=== PATIENT | female | born 1945 | race Caucasian/White ===

== ENCOUNTER 2019-09-03 10:30 | Outpatient (CLI) | payer MEDICARE, SELFPAY ==
--- NOTE | ~2019-09-03 | MM_ITS ---
EXAMINATION: MM screening [facility] BI w [facility] HISTORY: Screening mammogram TECHNIQUE: Craniocaudal and mediolateral oblique 3-D tomosynthesis images were obtained and synthetic 2-D images were generated. CAD analysis was submitted and interpreted. COMPARISON: Comparison to multiple prior studies sequentially, with oldest reviewed study dated 07/2012. BREAST PARENCHYMAL COMPOSITION: There are scattered areas of fibroglandular density. FINDINGS: There is no evidence of suspicious mass, calcification, or architectural distortion to sugg est malignancy in either breast. There has been no suspicious interval change. IMPRESSION: 1. No mammographic evidence of malignancy. 2. Recommend routine screening mammography in one year. BI-RADS Category 1: Negative Reviewed, dictated and finalized at location A.
== END 2019-09-03 10:31 | disposition home or self-care (01) ==
PROVIDERS: PCP Family Medicine Adolescent Medicine; Visit Provider Family Medicine Adolescent Medicine
DX: Z12.31 Encounter for screening mammogram for malignant neoplasm of breast (principal)
CPT/HCPCS: 77063; 77067

== ENCOUNTER 2020-09-09 10:00 | Outpatient (CLI) | payer MEDICARE, SELFPAY ==
--- NOTE | ~2020-09-09 | MM_ITS ---
EXAMINATION: MM screening [facility] w [facility] HISTORY: Screening mammogram TECHNIQUE: Craniocaudal and mediolateral oblique 3-D tomosynthesis images were obtained and synthetic 2-D images were generated. CAD analysis was submitted and interpreted. COMPARISON: 09/03/2019, 11/08/2017, 11/02/2016 bilateral digital screening mammogram examinations BREAST PARENCHYMAL COMPOSITION: There are scattered areas of fibroglandular density. FINDINGS: Stable small circumscribed likely benign intramammary lymph node is noted posteriorly in th e upper outer quadrant of each breast. Occasional benign calcifications. There is no evidence of susp icious mass, calcification, or architectural distortion to suggest malignancy in either breast. There has been no suspicious interval change. IMPRESSION: 1. No mammographic evidence of malignancy. 2. Recommend routine screening mammography in one year. BI-RADS Category 2: Benign finding(s). Reviewed, dictated and finalized at location A.
== END 2020-09-09 10:01 | disposition home or self-care (01) ==
LOC: ANHIMG 10:04
PROVIDERS: PCP Family Medicine Adolescent Medicine; Visit Provider Family Medicine Adolescent Medicine
DX: Z12.31 Encounter for screening mammogram for malignant neoplasm of breast (principal)
CPT/HCPCS: 77063; 77067

== ENCOUNTER 2020-09-23 01:04 | Day surgery (SDC) | payer MEDICARE, SELFPAY ==
[2020-09-09 15:03] VITALS: BMI 37.5
[2020-09-23 08:20] VITALS: BP 151/60; PULSE 76; RESP 20; TEMP 36.5; O2SAT 97
[2020-09-23] MEDS: LACTATED RINGERS 1,000 ML 150 ML IV CONT (08:31)
--- NOTE | 2020-09-23 08:37 | WPDANESEPPF ---
Anes - Initial Pre Proc Eval Procedure: Operation Date: 09/23/20 09:30 Proposed Procedures p Screening Colonoscopy - Jose D Raman MD Date/Time: 09/23/20 08:37 Surgeon: Jose D Raman MD Pre Op Diagnosis: Neoplasm screening Patient Data Age: 75 Gender: F Height: 1.6 m Weight: 94.8 kg Last Vital Signs Temp 36.5 C 09/23/20 08:20 Pulse 76 09/23/20 08:20 Resp 20 09/23/20 08:20 BP 151/60 H 09/23/20 08:20 Pulse Ox 97 09/23/20 08:20 Allergies Allergy/AdvReac Type Severity Reaction Status Date / Time No Known Allergies Verified 09/23/20 08:19 Home Medications Medication Instructions Recorded Confirmed Type atorvastatin 40 mg PO DAILY 09/09/20 09/09/20 History celecoxib 200 mg PO DAILY 09/09/20 09/09/20 History hydrochlorothiazide 25 mg PO DAILY 09/09/20 09/09/20 History omeprazole 20 mg PO DAILY 09/09/20 09/09/20 History quinapril 40 mg PO DAILY 09/09/20 09/09/20 History Patient hx anesthesia problems: none Family hx anesthesia problems: none [facility] Past Medical History Medical History GERD (gastroesophageal reflux disease) Hyperlipidemia Hypertension ANAIS (obstructive sleep apnea) Social History Social History Smoking status: Former smoker Tobacco type: cigarettes Substance use type: does not use Living arrangements: alone Gender identity (if verbalized by the patient): Female Anes - Eval Final PreProcedure Day of Procedure 09/23/20 08:37 Patient weight: obese Heart: regular rate and rhythm Lungs: clear to auscultation Airway: Mallampati scale class II Neurological: alert and oriented Last oral intake: >/= 8 hours ASA classification: III Emergent: no Anesthetic plan: proceed Anesthesia type and monitoring: general GIVS and standard monitoring Informed Consent: The patient's anesthetic plan and its attendant risks and benefits were discussed with the patient/family/POA. Questions were solicited and answers provided to the satisfaction of the patient/family/POA.
--- NOTE | 2020-09-23 08:58 | PM.HPGS ---
History of Present Illness History of Present Illness Consent: Risks, benefits, and alternatives have been discussed and questions answered. Patient agrees to proceed with procedure. Chief complaint: Neoplasm screening Narrative: Marleny Wolff is a 75 year old female Referred for colon cancer screening. It has been 10 years since her last colonoscopy Review of Systems Review of Systems: All systems reviewed & are unremarkable except as noted in HPI and below PMFSH Past Medical History Medical History GERD (gastroesophageal reflux disease) Hyperlipidemia Hypertension ANAIS (obstructive sleep apnea) Social History Social History Smoking status: Former smoker Tobacco type: cigarettes Substance use type: does not use Living arrangements: alone Gender identity (if verbalized by the patient): Female Meds Home Medications and Allergies Home Medications Medication Instructions Recorded Confirmed Type atorvastatin 40 mg PO DAILY 09/09/20 09/09/20 History celecoxib 200 mg PO DAILY 09/09/20 09/09/20 History hydrochlorothiazide 25 mg PO DAILY 09/09/20 09/09/20 History omeprazole 20 mg PO DAILY 09/09/20 09/09/20 History quinapril 40 mg PO DAILY 09/09/20 09/09/20 History Allergies Allergy/AdvReac Type Severity Reaction Status Date / Time No Known Allergies Verified 09/23/20 08:19 Vital Signs Vital Signs - 24 hr 09/23/20 08:20 Temperature 36.5 C Pulse Rate 76 Respiratory Rate 20 Blood Pressure 151/60 H Pulse Oximetry 97 Exam Resp: Auscultation: clear to auscultation bilaterally Cardio: Rate: regular rate Rhythm: regular rhythm GI: GI Palp: Yes Soft to palpation and No Tenderness to palpation present (GI) Assessment and Plan Assessment and plan (1) Colon cancer screening: Code(s): Z12.11 - Encounter for screening for malignant neoplasm of colon Status: Acute Assessment and Plan: Colonoscopy with possible biopsy or polypectomy or cautery or injection of substances.
[2020-09-23 10:00] VITALS: BP 97/49; PULSE 61; RESP 27; O2SAT 96
[2020-09-23 10:10] VITALS: BP 105/53; PULSE 59; RESP 16; O2SAT 99
[2020-09-23 10:20] VITALS: BP 97/54; PULSE 60; RESP 19; O2SAT 95
== END 2020-09-23 10:32 | disposition home or self-care (01) ==
PROVIDERS: PCP Family Medicine Adolescent Medicine; Visit Provider Internal Medicine Gastroenterology
PROC: 0DJD8ZZ Inspection of Lower Intestinal Tract, Via Natural or Artificial Opening Endoscopic (ICD-10-PCS; CPT 45378; principal; 2020-09-23 09:30)
DX: Z12.11 Encounter for screening for malignant neoplasm of colon (principal); I10 Essential (primary) hypertension; E78.5 Hyperlipidemia, unspecified; K21.9 Gastro-esophageal reflux disease without esophagitis; G47.33 Obstructive sleep apnea (adult) (pediatric); Z87.891 Personal history of nicotine dependence
CPT/HCPCS: G0121; J2001; J2704; J7120

== ENCOUNTER 2021-10-06 10:33 | Outpatient (CLI) | payer MEDICARE, SELFPAY ==
--- NOTE | ~2021-10-06 | MM_ITS ---
EXAMINATION: MM screening [facility] BI w [facility] HISTORY: Screening TECHNIQUE: Craniocaudal and mediolateral oblique 3-D tomosynthesis images were obtained and synthetic 2-D images were generated. CAD analysis was submitted and interpreted. COMPARISON: Comparison to multiple prior studies sequentially, with oldest reviewed study dated 10/19. BREAST PARENCHYMAL COMPOSITION: There are scattered areas of fibroglandular density. FINDINGS: There is no evidence of suspicious mass, calcification, or architectural distortion to sugg est malignancy in either breast. There has been no suspicious interval change. IMPRESSION: 1. No mammographic evidence of malignancy. 2. Recommend routine screening mammography in one year. BI-RADS Category 1: Negative Reviewed, dictated and finalized at location A.
== END 2021-10-06 10:34 | disposition home or self-care (01) ==
PROVIDERS: PCP Family Medicine Adolescent Medicine; Visit Provider Family Medicine Adolescent Medicine
DX: Z12.31 Encounter for screening mammogram for malignant neoplasm of breast (principal)
CPT/HCPCS: 77063; 77067

== ENCOUNTER 2021-12-29 12:24 | Emergency (ER) | payer MEDICARE, SELFPAY ==
[2021-12-29] VITALS (8 sets, daily range): BP systolic 136–162; BP diastolic 74–88; PULSE 62–88; RESP 16–18; TEMP 36.8; O2SAT 96–99
--- NOTE | ~2021-12-29 | CT_ITS ---
EXAMINATION: CT abdomen pelvis w con INDICATION: Right flank pain TECHNIQUE: Computed tomographic images of the abdomen and pelvis were obtained after the administrati on of 100 cc of Omnipaque 350 intravenous contrast. The dose-length product (DLP) was 1078.18 mGy-cm. Automated exposure control and iterative reconstruction technique were employed. COMPARISON: None available FINDINGS: Minimal dependent atelectasis is present in the lung bases. The heart size is normal. There is a moderate-sized sliding hiatal hernia. Calcified coronary artery atherosclerosis is noted. The l iver, spleen, pancreas, gallbladder, and adrenal glands are normal. Hypoattenuating lesions in the ki dneys, measuring up to 2 mm on the right, are too small to characterize but likely represent cysts. T here is calcified atherosclerosis of the aorta and many of the other arteries. There is a moderate-si zed umbilical hernia containing fat. There is a greater than normal number of fluid-filled, nondisten ded small bowel loops. No pathologically enlarged abdominal or pelvic lymph nodes are identified. The re is no free intraperitoneal gas or evidence of bowel obstruction. The cecum is in the right, latera l mid There is severe lumbar spondylosis. abdomen. The mildly dilated appendix measures up to 7 mm. No definite periappendiceal fat stranding is identified. IMPRESSION: 1. Mildly dilated appendix without definite periappendiceal fat stranding. 2. Greater than normal number of fluid-filled, nondistended small bowel loops, possibly enteritis. Reviewed, dictated and finalized at location A.
[2021-12-29 12:58] LABS: Basophils Percent Auto 0.2 % (0.2-1.2); Eosinophils Absolute Auto 0.1 K/mm3 (0-0.3); Hematocrit 38.5 % (37.0-47.0); Hemoglobin 12.7 g/dL (12.0-15.0); Immature Granulocyte Absolute 0.04 K/mm3 (0.00-0.031); Immature Granulocyte Percent A 0.4 % (0-0.5); Lymphocytes Percent Auto 12.3 % (18.3-44.2); Mean Corpuscular Hemoglobin 29.2 pg (26-34); Mean Corpuscular Volume 88.5 fl (80-100); Mean Platelet Volume 12.2 fl (7.4-10.4); Monocytes Absolute Auto 0.4 K/mm3 (0.1-0.6); Monocytes Percent Auto 4.2 % (2.6-8.5); Neutrophils Percent Auto 81.9 % (45.5-73.1); Platelet Count Result 202 k/mm3 (150-375); Red Blood Count 4.35 M/mm3 (4.2-5.4); White Blood Count 9.7 K/mm3 (4.5-10.0)
[2021-12-29 13:15] LABS: Alanine Aminotransferase 18 U/L (6-35); Albumin Level 4.7 g/dL (3.5-5.1); Alkaline Phosphatase 75 U/L (38-126); Anion Gap 12 mmol/L (8-16); Aspartate Amino Transferase 31 U/L (14-36); Bilirubin,Total 0.9 mg/dL (0.2-1.3); Blood Urea Nitrogen 25 mg/dL (7-17); Calcium 8.8 mg/dL (8.4-10.2); Carbon Dioxide 24 mmol/L (22-30); Chloride 100 mmol/L (98-107); Estimated CRCL calculation 39 ml/min; Estimated Glomerular Filt Rate 44; Glucose 169 mg/dL (65-110); Lipase 80 U/L (23-300); Potassium 4.4 mmol/L (3.4-5.0); Sodium 136 mmol/L (137-145)
[2021-12-29 15:00] LABS: Add Urine Microscopic? NO; Appearance Urine Clear (Clear); Bilirubin Urine Negative (Negative); Blood Urine Negative (Negative); Color Urine Yellow (Yellow); Glucose Urine UA Negative (Negative); Ketones Urine Negative (Negative); Leukocyte Esterase Ur Negative LEU/UL (Negative); Nitrate Urine Negative (Negative); Protein Urine Negative (Negative); Specific Grav Ur 1.015 (1.001-1.035); Urobilinogen Urine Negative mg/dL (<2.0)
--- NOTE | 2021-12-29 17:06 | ED.ABDPAIN ---
HPI - Abdominal Pain General Chief Complaint: Abdominal Pain Stated Complaint: abd pain Time Seen by Provider: 12/29/21 16:54 Source: RN notes reviewed History of Present Illness HPI narrative: Patient presents emergency room from home for abdominal pain. Patient states abdominal pain began earlier this morning. The pain is across the mid abdomen described as cramping and bloating in nature. She states that the pain does not radiate she denies any fever chills nausea vomiting or diarrhea. States she did have 2 bowel movements this morning states she has not taken anything for the pain. States she does have a history of an umbilical hernia that has been firm Related Data Allergies Allergy/AdvReac Type Severity Reaction Status Date / Time No Known Allergies Verified 05/26/21 14:54 Review of Systems Review of Systems: Gen.: Denies fevers or chills ENT: Denies congestion Respiratory: Denies shortness of breath or cough CV: Denies chest pain or palpitations GI: See HPI Musculoskeletal: Denies back pain or muscle pain Neuro: Denies numbness, tingling, weakness or focal weakness Skin: Denies rash Except as documented, all other systems reviewed and negative [facility] Past Medical History Medical History GERD (gastroesophageal reflux disease) Hyperlipidemia Hypertension Normal colonoscopy 09/22 ANAIS (obstructive sleep apnea) Surgical History Surgical History (Updated 05/26/21 @ 15:35 by Horacio Neff MD) History of ear surgery x5 History of hysterectomy History of knee replacement procedure of left knee History of tubal ligation Status post removal of thyroid nodule R-side Family History Family History (Updated 05/26/21 @ 15:05 by Candy Julien MA) Father Acute myocardial infarction Heart disease Hypertension Sibling Depression Diabetes mellitus Heart disease Social History Social History Smoking status: Former smoker Tobacco type: cigarettes Smoking end date: 04/06/79 Alcohol intake: current Alcohol use details: Very Little Substance use: never Substance use type: does not use Gender identity (if verbalized by the patient): Female Sexual Orientation (if Verbalized by the Patient): Straight or Heterosexual Spiritual care concerns: No Agree to blood products: Yes Exam Narrative: APPEARANCE: No acute distress, nontoxic, resting in bed HEENT: Normocephalic, atraumatic, OMM RESPIRATORY: No respiratory distress, clear to auscultation bilaterally with no rhonchi wheezing or rales CARDIOVASCULAR: RRR s murmur ABDOMINAL: Soft nondistended tender palpation around periumbilical region with a firm umbilical hernia that cannot be reduced, no tenderness in right lower quadrant, left lower quadrant and right upper quadrant left lower quadrant no rebound or guarding MUSCULOSKELETAl: Moves all extremities. No clubbing, cyanosis or edema. NEURO: Awake and alert. Following commands, speech normal, no focal deficits SKIN:: Warm, dry. Normal Color PSYCHIATRIC: Normal affect/mood Course Course Emergency Course: Patient given morphine in ED umbilical hernia then able to be reduced Following CT scan repeat abdominal exam is soft and nontender no tenderness in the right lower quadrant Discussed Dr. Roque presentation work-up agrees with plan for discharge follow-up as an outpatient Patient states that they are feeling much better at this time. States abdominal pain has resolved. Repeat abdominal exam shows the patient's abdomen to be soft and nontender. Discussed with patient results of workup and diagnosis. Discussed need for follow-up with primary care physician, reasons to return to the emergency department in proper use of medication. Patient understands and agrees to current treatment plan Vital Signs Vital signs: Vital Signs Temperature 98.3 F 12/29/21 1
[2021-12-29] MEDS: MORPHINE SULFATE (*CRX) 2 MG/ML INJ IV PUSH (17:15)
[2021-12-29 18:22] LABS: INR 1.1; Prothrombin Time 14.1 Seconds (11.1-14.7)
[2021-12-29 18:23] LABS: Partial Thromboplastin Time 29.6 SECONDS (22.3-36.8)
== END 2021-12-29 19:25 | disposition home or self-care (01) ==
PROVIDERS: Emergency Provider Emergency Medicine; PCP Family Medicine Adolescent Medicine
DX: K42.9 Umbilical hernia without obstruction or gangrene (principal); E78.5 Hyperlipidemia, unspecified; I10 Essential (primary) hypertension; K21.9 Gastro-esophageal reflux disease without esophagitis; G47.33 Obstructive sleep apnea (adult) (pediatric); Z96.652 Presence of left artificial knee joint; Z90.710 Acquired absence of both cervix and uterus; Z87.891 Personal history of nicotine dependence
CPT/HCPCS: 36415; 74177; 80053; 81003; 83690; 85025; 85610; 85730; 96374; 99284; J2270; Q9967

== ENCOUNTER → 2022-05-09 08:52 | Outpatient (CLI) | payer MEDICARE, SELFPAY ==
--- NOTE | ~2022-05-09 | XR_ITS ---
EXAM: XR shoulder LT min 2V DATE: 05/09/2022 09:07 HISTORY: chronic Pain in left shoulder, LROM . COMPARISON: None available. FINDINGS: Normal mineralization. No fracture or dislocation. No lytic or blastic lesion. Moderate AC joint hypertrophy. Severe glenoid sclerosis, with humeral head flattening and moderate osteophytosis . No erosion or periosteal change. Soft tissues within normal limits. 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 Reviewed, dictated and finalized at location K. [facility] IMPRESSION: Polyarticular left shoulder arthritis, severe in the glenohumeral j oint.
== END ==
PROVIDERS: PCP Family Medicine Adolescent Medicine; Visit Provider Family Medicine Adolescent Medicine
DX: M19.012 Primary osteoarthritis, left shoulder (principal)
CPT/HCPCS: 73030

== ENCOUNTER 2022-12-21 10:27 | Outpatient (CLI) | payer MEDICARE, SELFPAY ==
--- NOTE | ~2022-12-21 | MM_ITS ---
EXAMINATION: MM screening [facility] BI w [facility] HISTORY: Screening TECHNIQUE: Craniocaudal and mediolateral oblique 3-D tomosynthesis images were obtained and synthetic 2-D images were generated. CAD analysis was submitted and interpreted. COMPARISON: Comparison to multiple prior studies sequentially, with oldest reviewed study dated 10/25. BREAST PARENCHYMAL COMPOSITION: There are scattered areas of fibroglandular density. FINDINGS: There is no evidence of suspicious mass, calcification, or architectural distortion to sugg est malignancy in either breast. There has been no suspicious interval change. IMPRESSION: 1. No mammographic evidence of malignancy. 2. Recommend routine screening mammography in one year. BI-RADS Category 1: Negative Reviewed, dictated and finalized at location A.
== END 2022-12-21 10:28 | disposition home or self-care (01) ==
PROVIDERS: PCP Family Medicine Adolescent Medicine; Visit Provider Family Medicine Adolescent Medicine
DX: Z12.31 Encounter for screening mammogram for malignant neoplasm of breast (principal)
CPT/HCPCS: 77063; 77067

== ENCOUNTER 2023-11-19 09:09 | Emergency (ER) | payer MEDICARE, SELFPAY ==
--- NOTE | ~2023-11-19 | CT_ITS ---
EXAMINATION: CT abdomen pelvis w con DATE: 11/19/2023 10:12 INDICATION: Acute calculi enlarging and nonreducible umbilical hernia concerning for incarceration. TECHNIQUE: Computed tomography (CT) of the abdomen and pelvis was performed with 100 mL Omnipaque-350 intravenous contrast. Automated exposure control and iterative reconstruction technique were employe d. The dose-length product was 1003.08 mGy-cm. COMPARISON: 12/29/2021 FINDINGS: Mild atelectasis in the left lower lobe along the mildly elevated left hemidiaphragm as well as along the margins of a moderate-sized hiatal hernia. Heart size is normal. A few sclerotic coronary artery calcification. Aortic valve calcific lesion. No pericardial or pleural effusion. Liver, gallbladder, spleen, pancreas, bilateral adrenal glands and kidneys are normal. Moderate-sized fat-containing umb ilical hernia measuring 5.1 x 3.9 x 4.3 cm with stranding and minimal fluid along the herniated fat. No herniated bowel. Bowels including the appendix are normal with no obstruction. Bladder is normal. The uterus is not identified and has likely been surgically resected. Small left and very small ri ght fat-containing bilateral inguinal hernias. No free intraperitoneal gas or fluid. No pathologicall y enlarged abdominal or pelvic lymphadenopathy. There is calcified atherosclerosis of the aorta and m any of the other arteries. 50 degrees lumbar levoscoliosis with severe spondylosis. There are a coupl e unchanged metallic anchors in the soft tissues anterior to the left pubic body and anterior inferio r to the right pubic body. IMPRESSION: 1. Interval increase in size of a now 5.1 x 3.9 x 4.3 cm fat-containing umbilical hernia with some in flammatory stranding and minimal fluid along the herniated fat. No herniated bowel. 2. Moderate-sized sliding-type hiatal hernia. 3. Small left and very small right fat-containing bilateral inguinal hernias. Reviewed, dictated and finalized at location B. IMPRESSION: 1. Interval increase in size of a now 5.1 x 3.9 x 4.3 cm fat-containing umbilic al hernia with some inflammatory stranding and minimal fluid along the herniate d fat. No herniated bowel. 2. Moderate-sized sliding-type hiatal hernia. 3. Small left and very small right fat-containing bilateral inguinal hernias.
[2023-11-19 09:17] VITALS: BP 133/79; PULSE 95; RESP 20; O2SAT 96
[2023-11-19 09:26] VITALS: BP 133/79; PULSE 87; RESP 26; TEMP 36.5; O2SAT 95
--- NOTE | 2023-11-19 09:34 | ED.ABDPAIN ---
HPI - Abdominal Pain General Chief Complaint: Abdominal Pain Stated Complaint: UMBILICAL HERNIA PAIN Time Seen by Provider: 11/19/23 09:15 History of Present Illness HPI narrative: 78 year-old female with history of umbilical hernia presenting to the emergency department for evaluation for concern for incarcerated hernia. Patient states that her hernia popped out on Sunday head she was unable to get it reduced. Patient states that sometimes does pop out but she is always able to get it reduced. Patient states she has had significant bowel movement is still passing gas. Related Data Home Medications Medication Instructions Recorded Confirmed lancets (Accu-Chek Softclix 02/13/22 05/07/23 Lancets) Allergies Allergy/AdvReac Type Severity Reaction Status Date / Time No Known Allergies Allergy Verified 11/19/23 09:32 Review of Systems Review of Systems: All systems reviewed & are unremarkable except as noted in HPI and below PMFSH Past Medical History Medical History GERD (gastroesophageal reflux disease) Hyperlipidemia Hypertension Normal colonoscopy 09/22 ANAIS (obstructive sleep apnea) Surgical History Surgical History History of ear surgery x5 History of hysterectomy History of knee replacement procedure of left knee History of tubal ligation Status post removal of thyroid nodule R-side Family History Family History Father Acute myocardial infarction Heart disease Hypertension Sibling Depression Diabetes mellitus Heart disease Social History Social History (Updated 08/15/22 @ 10:03 by Rohit Jackson [facility]) Smoking status: Former smoker Tobacco type: cigarettes Smoking end date: 04/06/79 Alcohol intake: current Alcohol use details: Very Little Substance use: never Substance use type: does not use Lack of Transportation: No Lack of Food: Never True Current Housing: I Have Housing Concerned About Future Housing: No Difficulty Paying Gas/Electric Bills: No Difficulty Paying for Meds: No Currently Unemployed: No Education: Trade/Vocational Certificate Difficulty w/ Childcare or Family Care: No Living arrangements: alone Occupation/Education: retired Gender identity (if verbalized by the patient): Female Sexual Orientation (if Verbalized by the Patient): Straight or Heterosexual Spiritual care concerns: No Agree to blood products: Yes Exam Narrative: APPEARANCE: Well appearing, no pain, no distress, well-nourished. HEAD: normocephalic, atraumatic. EYES: PERRLA/EOMI, conjunctivae clear. NOSE: Normal no drainage EARS:TMS clear with good light reflex. THROAT: Pharynx clear, no exudate. NECK: Supple. No adenopathy, no masses. RESPIRATORY: Airway patent, respirations nonlabored. Clear to auscultation bilaterally, no rales, rhonchi, wheezing. CARDIOVASCULAR: Regular rate and rhythm without murmurs rubs or gallops. ABDOMINAL: Umbilical hernia that was unable to be reduced. MUSCULOSKELETAL: Moves all extremities. Strength/ROM intact, No edema, No calf tenderness. NEURO: Alert. Cranial nerves II through XII intact. Good gait. Good coordination SKIN: Warm, dry. Normal Color Course Course Emergency Course: Case was discussed with surgery and they were comfortable with plan for outpatient follow-up with the patient. Patient was also comfortable with this plan. Vital Signs Vital signs: Vital Signs Pulse Rate 95 11/19/23 09:17 Respiratory Rate 20 11/19/23 09:17 Blood Pressure 133/79 11/19/23 09:17 Pulse Oximetry 96 11/19/23 09:17 Temperature 97.7 F 11/19/23 09:26 Pulse Rate 72 11/19/23 11:27 Respiratory Rate 23 H 11/19/23 11:27 Blood Pressure 138/58 L 11/19/23 11:27 Pulse Oximetry 98 11/19/23 11:27 Oxygen Delivery Room Air 11/03
[2023-11-19 09:40] LABS: Basophils Percent Auto 0.5 % (0.2-1.2); Eosinophils Absolute Auto 0.2 K/mm3 (0-0.3); Hematocrit 37.2 % (37.0-47.0); Hemoglobin 12.5 g/dL (12.0-15.0); Immature Granulocyte Absolute 0.03 K/mm3 (0.00-0.031); Immature Granulocyte Percent A 0.4 % (0-0.5); Lymphocytes Absolute Auto 1.92 K/mm3 (0.9-3.2); Lymphocytes Percent Auto 25.3 % (18.3-44.2); Mean Corpuscular HGB Conc 33.6 g/dl (32-36); Mean Corpuscular Volume 89.4 fl (80-100); Mean Platelet Volume 10.9 fl (7.4-10.4); Monocytes Absolute Auto 0.6 K/mm3 (0.1-0.6); Monocytes Percent Auto 8.3 % (2.6-8.5); Neutrophils Absolute Auto 4.8 K/mm3 (1.3-6.7); Neutrophils Percent Auto 63.5 % (45.5-73.1); Platelet Count Result 285 k/mm3 (150-375); Red Blood Count 4.16 M/mm3 (4.2-5.4); Red Cell Distribution Width 13.6 % (11.5-14.5); White Blood Count 7.6 K/mm3 (4.5-10.0)
[2023-11-19 09:51] LABS: Alanine Aminotransferase 16 U/L (6-35); Albumin Level 4.5 g/dL (3.5-5.1); Alkaline Phosphatase 87 U/L (38-126); Anion Gap 11 mmol/L (4-12); Aspartate Amino Transferase 24 U/L (14-36); Bilirubin,Total 0.6 mg/dL (0.2-1.3); Blood Urea Nitrogen 22 mg/dL (7-17); Calcium 9.5 mg/dL (8.4-10.2); Carbon Dioxide 21 mmol/L (22-30); Chloride 96 mmol/L (98-107); Estimated CRCL calculation 35 ml/min; Estimated Glomerular Filt Rate 40; Glucose 121 mg/dL (65-110); Lipase 125 U/L (23-300); Potassium 4.9 mmol/L (3.4-5.0); Sodium 128 mmol/L (137-145)
[2023-11-19 10:38] VITALS: BP 132/99; PULSE 60; RESP 13; O2SAT 97
[2023-11-19 11:02] LABS: Add Urine Microscopic? YES; Appearance Urine Clear (Clear); Bacteria Urine None Seen /hpf; Bilirubin Urine Negative (Negative); Blood Urine Negative (Negative); Color Urine Yellow (Yellow); Glucose Urine UA Negative (Negative); Ketones Urine Negative (Negative); Leukocyte Esterase Ur Trace LEU/UL (Negative); Nitrate Urine Negative (Negative); Non Pathogenic Casts 0-2; Protein Urine Negative (Negative); RBC Urine 0-2 /hpf (0-2); Specific Grav Ur 1.038 (1.001-1.035); Squamous Epithelial Cell Urine Many /hpf (Few); Urobilinogen Urine 0.2 mg/dL (<2.0); WBC Urine 0-5 /hpf (0-3); pH Urine 5.5 (5.0-9.0)
[2023-11-19 11:27] VITALS: BP 138/58; PULSE 72; RESP 23; O2SAT 98
== END 2023-11-19 11:40 | disposition home or self-care (01) ==
PROVIDERS: Emergency Provider Emergency Medicine; PCP Family Medicine Adolescent Medicine
DX: K42.9 Umbilical hernia without obstruction or gangrene (principal); I10 Essential (primary) hypertension; E78.5 Hyperlipidemia, unspecified; K21.9 Gastro-esophageal reflux disease without esophagitis; G47.33 Obstructive sleep apnea (adult) (pediatric); Z96.652 Presence of left artificial knee joint; Z87.891 Personal history of nicotine dependence; Z90.710 Acquired absence of both cervix and uterus; K44.9 Diaphragmatic hernia without obstruction or gangrene; K40.20 Bilateral inguinal hernia, without obstruction or gangrene, not specified as recurrent
CPT/HCPCS: 36415; 74177; 80053; 81001; 83690; 85025; 99284; Q9967

== ENCOUNTER 2023-12-12 10:08 | Outpatient (CLI) | payer MEDICARE, SELFPAY ==
--- NOTE | 2023-12-12 10:20 | ECG_ITS ---
Test Date: 2023-12-12 10:25:25 Measurements Intervals [place] Rate: 61 P: 0 ME: 0 QRS: 20 QRSD: 90 T: 30 QT: 379 QTc: 383 Interpretive Statements ECTOPIC, NON SINUS ATRIAL RHYTHM ATYPICAL ECG No previous ECG available for comparison Electronically Signed On 12-12-2023 11:14:25 CDT by Pepe Sosa M.D.
[2023-12-12 10:49] LABS: Sodium 132 mmol/L (137-145)
[2023-12-12 10:52] LABS: Partial Thromboplastin Time 27.9 Seconds (22.3-36.8); Prothrombin Time 13.7 Seconds (11.1-14.7)
== END 2023-12-12 10:09 | disposition home or self-care (01) ==
PROVIDERS: Anesthesiology; PCP Family Medicine Adolescent Medicine; Visit Provider Surgery
DX: Z01.818 Encounter for other preprocedural examination (principal); E87.1 Hypo-osmolality and hyponatremia; I12.9 Hypertensive chronic kidney disease with stage 1 through stage 4 chronic kidney disease, or unspecified chronic kidney disease; N18.31 Chronic kidney disease, stage 3a; I35.0 Nonrheumatic aortic (valve) stenosis; E78.5 Hyperlipidemia, unspecified; K42.9 Umbilical hernia without obstruction or gangrene
CPT/HCPCS: 36415; 84295; 85610; 85730; 86850; 86900; 86901; 93005

== ENCOUNTER 2023-12-17 01:32 | Day surgery (SDC) | payer MEDICARE, SELFPAY ==
[2023-12-10 11:19] VITALS: BMI 38.2
--- NOTE | 2023-12-10 11:44 | PC.NURSE ---
Report to the Outpatient Waiting Room, entrance under the green pavilion located off [facility], at time __10:00am__on date 12/17/23 . Planned Procedure Time: __12:00pm .? Time changes happen often and if your time is changed the preop area will call you the afternoon before. - You and your visitor will be asked to self-screen and do not enter if you have any COVID symptoms. Please call surgeon if you need to reschedule. - A mask is optional within the hospital at this time. Patients may have clear liquids (water, carbonated beverages, clear teas, apple juice) until 3 hours prior to surgery with a maximum of 20 ounces. - No food from midnight until time of surgery and no smoking (0900am) Take only the following medications with a SIP of water on the morning of surgery: ___Tylenol as needed DO NOT STOP ANY OF YOUR OTHER PRESCRIPTION MEDICATIONS PRIOR TO SURGERY EXCEPT THE FOLLOWING Medications to discontinue per physician __None _ Date to take last dose None Please no make-up, nail georgian, hairspray, perfume, deodorant, or body powder the day of surgery.? No jewelry (including any body piercings) or valuables the day of surgery, leave them at home.? Please take a shower or bath the night before, or the morning of, surgery with an antibacterial soap.? Wear comfortable, loose fitting clothing.? - Jewelry must be removed prior to entering the operating room.? Rings and piercings that are not removed may be cut off. - The hospital will not accept responsibility for valuables.? - Please leave all valuables, including medications, at home the day of surgery. If you are going home after surgery, a licensed putaway driver must drive you home.? - NO public transportation without another adult if you receive anesthesia. - We recommend that an adult stay with you for 24 hours following discharge. - We also recommend that you do not drive, make important decision, drink alcoholic beverages, or take any drugs that were not prescribed by your health care provider for at least 24 hours after your discharge time. Follow any additional instructions given to you from your surgeon. Telephone instructions given to ____patient and asked if any additional questions and then verbalized understanding. Patient advised to call surgeon office or pre surgery nurse liaison [phone] if any additional questions.
[2023-12-17] VITALS (16 sets, daily range): BP systolic 135–163; BP diastolic 60–97; PULSE 63–87; RESP 12–23; TEMP 36; O2SAT 85–100; BMI 38.2
--- NOTE | 2023-12-17 09:21 | WPDHPUPDATE1 ---
History and Physical Update Update Date/Time: 12/17/23 09:21 History and Physical has been reviewed, including an updated exam of the patient. There are NO changes in the patient's condition. Risks, benefits, and alternatives have been discussed and questions answered. Patient agrees to proceed with procedure.
--- NOTE | 2023-12-17 11:55 | WPDANESEPPF ---
Anes - Initial Pre Proc Eval Procedure: Operation Date: 12/17/23 12:00 Proposed Procedures p Robotic Assisted Umbilical Hernia Repair with Mesh - Guerline Roque MD Date/Time: 12/17/23 11:55 Surgeon: Guerline Roque MD Pre Op Diagnosis: 5 cm umbilical hernia Patient Data Age: 78 Gender: F Height: 1.57 m Weight: 94.7 kg Last Vital Signs Temp 96.8 F L 12/17/23 11:09 Pulse 63 12/17/23 11:09 Resp 18 12/17/23 11:09 BP 161/76 H 12/17/23 11:09 Pulse Ox 98 12/17/23 11:09 Allergies Allergy/AdvReac Type Severity Reaction Status Date / Time No Known Allergies Allergy Verified 12/17/23 11:00 Home Medications Medication Instructions Recorded Confirmed Type lancets (Accu-Chek Softclix 02/13/22 11/28/23 History Lancets) blood sugar diagnostic (Accu-Chek #100 ea 02/20/22 11/28/23 Rx Emani Plus test strips) hydrochlorothiazide 25 mg tablet 25 mg PO DAILY #90 tabs 03/22/23 12/10/23 Rx omeprazole 20 mg capsule,delayed 20 mg PO DAILY #90 caps 03/22/23 12/10/23 Rx release atorvastatin 40 mg tablet 40 mg PO DAILY #90 tabs 08/16/23 12/10/23 Rx lisinopril 40 mg tablet 40 mg PO DAILY #90 tabs 11/09/23 12/10/23 Rx Tylenol Extended Release 1,300 mg PO BID PRN Pain 12/10/23 12/10/23 History acetaminophen 650 mg 650 mg PO Q8H PRN Pain 12/17/23 12/17/23 History tablet,extended release Patient hx anesthesia problems: post op nausea/vomiting Family hx anesthesia problems: none Results Review: All pre-operative results and documents have been reviewed as part of the pre-operative evaluation. [facility] Past Medical History Medical History (Updated 11/28/23 @ 09:40 by Aida Garnett [facility]) GERD (gastroesophageal reflux disease) Hyperlipidemia Hypertension Normal colonoscopy 09/22 ANAIS (obstructive sleep apnea) Surgical History Surgical History History of ear surgery x5 History of hysterectomy History of knee replacement procedure of left knee History of tubal ligation Status post removal of thyroid nodule R-side Family History Family History Father Acute myocardial infarction Heart disease Hypertension Sibling Depression Diabetes mellitus Heart disease Social History Social History Smoking packs per day: 1.5 Smoking cigarettes per day: 30.0 Years smoked: 10 Smoking pack-years: 15.00 Smoking status: Former smoker Tobacco type: cigarettes Smoking end date: 04/06/79 Alcohol intake: current Drinks per week: 1 Alcohol use details: Very Little Substance use: never Substance use type: does not use Lack of Transportation: No Lack of Food: Never True Current Housing: I Have Housing Concerned About Future Housing: No Difficulty Paying Gas/Electric Bills: No Difficulty Paying for Meds: No Currently Unemployed: No Education: Trade/Vocational Certificate Difficulty w/ Childcare or Family Care: No Living arrangements: [facility] Additional living arrangements comments: alone [facility] Occupation/Education: retired Gender identity (if verbalized by the patient): Female Sexual Orientation (if Verbalized by the Patient): Straight or Heterosexual Spiritual care concerns: No Agree to blood products: Yes Anes - Eval Final PreProcedure Day of Procedure 12/17/23 11:55 Patient weight: obese Heart: regular rate and rhythm Lungs: clear to auscultation Airway: Mallampati scale class III Neurological: alert and oriented Last oral intake: >/= 8 hours ASA classification: III Emergent: no Anesthetic plan: proceed Anesthesia type and monitoring: general ETT and standard monitoring Results Review: All pre-operative results and documents have been reviewed as part of the pre-operative evaluation. Informed Consent: The patient's anesthetic plan and its attendant risks and benefits were discussed with the patient/family/POA. Questions were solicited and answers provided to the satisfaction of the patient/family/POA.
[2023-12-17] MEDS: ceFAZolin 2 GM/D5W 50 ML 2 GM/50 ML BAG IVPB (12:06)
[2023-12-17] MEDS: LACTATED RINGERS 1,000 ML 30 ML IV CONT ×2 (12:13→15:40)
[2023-12-17] MEDS: KETOROLAC 15 MG/ML VIAL (*BKC) IV PUSH (12:13)
[2023-12-17] MEDS: BUPIVACAINE/EPINEPHRINE 0.5% 10 ML VIAL 30 ML INFILTRATE (12:53)
[2023-12-17] MEDS: fentaNYL CITRATE INJ (*CRX) 100 MCG/2 ML VIAL 25 MCG IV PUSH ×4 (13:47→14:20)
--- NOTE | 2023-12-17 13:47 | P.OP_ITS ---
Procedure Note - Detailed Date of Procedure 12/17/23 Pre-op Diagnosis incarcerated umbilical hernia Post-op Diagnosis Same Procedure Performed robotic assisted repair incarcerated umbilical hernia with defect measuring approximately 4 cm Surgeon Guerline Roque MD Anesthesia General and Local Indications 78-year-old female presenting with incarcerated umbilical hernia. The patient has had this hernia for quite a while and recently has become larger and more symptomatic. Findings Incarcerated umbilical hernia with omentum, defect measuring 4 cm Description of Procedure The patient was taken the operating room placed in the supine position. After adequate induction of general anesthesia, the patient was prepped and draped in normal sterile fashion. A time-out was then done to verify the patient's i dentity as well as the procedure being performed. I began by making a 8 mm incision in the left upper quadrant. Through this, a Veress needle was placed into the peritoneal cavity and CO2 gas was insufflated. After adequate pneumoperitoneum was achieved, a 8 mm trocar was placed through this incision. I then placed the laparoscope through this trocar site and under direct visualization I placed a 8 mm port in the left mid abdomen as well as an additional 8 mm port in the left lower abdomen. The robot was then docked to the 3 port sites. I then went to the robotic console. I began by identifying the hernia. A moderate-sized incarcerated hernia was noted in the periumbilical region. Using graspers, I was able to reduce this hernia. The hernia was noted to contain a large amount of preperitoneal fat and omentum. Once reduced, I also reduced and dissected out the hernia sac. I then closed the approximately 4 cm defect with 0 strata fix suture. I then placed a 10 x 15 cm Ventralight mesh into the abdominal cavity. The positional stitch was placed in the middle of the mesh and brought up centering the mesh over the defect. Once this was done, I used 2 0 V lock suture x 2 to circumferentially suture the mesh to the abdominal. Once the mesh was completely sutured in, I was happy with our tension-free repair. The mesh was noted to have good overlap of the defect. At this point, the robot was undocked and all ports were removed. All port sites were then closed with 4 O Monocryl subcuticular suture. The patient tolerated the procedure well, is extubated in the operating room postoperative, and will be transferred to the recovery room in stable condition. Implants [address] mesh Estimated Blood Loss 10 Drains No Packing No Pathology None sent Complications No immediate complications Condition Stable Disposition PACU
[2023-12-17] MEDS: diphenhydrAMINE HCl INJ 50 MG/ML VIAL 6.25 MG IV PUSH (14:44)
[2023-12-17] MEDS: ACETAMINOPHEN 500 MG TABLET 1000 MG PO (16:09)
== END 2023-12-17 16:45 | disposition home or self-care (01) ==
PROVIDERS: PCP Family Medicine Adolescent Medicine; Visit Provider Surgery
PROC: (CPT 49594; principal; 2023-12-17 12:00)
DX: K42.0 Umbilical hernia with obstruction, without gangrene (principal); I10 Essential (primary) hypertension; E78.5 Hyperlipidemia, unspecified; G47.33 Obstructive sleep apnea (adult) (pediatric); K21.9 Gastro-esophageal reflux disease without esophagitis; Z87.891 Personal history of nicotine dependence; E66.9 Obesity, unspecified; Z68.38 Body mass index [BMI] 38.0-38.9, adult
CPT/HCPCS: 49594; S2900; 36415; 84295; 85610; 85730; 86850; 86900; 86901; 93005; A9270; C1781; J0690; J1100; J1200; J1885; J2003; J2405; J2704; J3010; J7120

== ENCOUNTER 2024-01-25 14:01 | Outpatient (CLI) | payer MEDICARE, SELFPAY ==
--- NOTE | ~2024-01-25 | MM_ITS ---
EXAMINATION: MM screening [facility] BI w byron HISTORY: Screening mammogram TECHNIQUE: Craniocaudal and mediolateral oblique 3-D tomosynthesis images were obtained and synthetic 2-D images were generated. CAD analysis was submitted and interpreted. COMPARISON: 12/21/2022, 10/06/2021, 09/09/2020 BREAST PARENCHYMAL COMPOSITION:Not Dense. The breasts are almost entirely fatty FINDINGS: There is a more conspicuous 5 mm mass at the upper, outer, posterior left breast. Stable ma mmographic appearance of the right breast. No suspicious metastatic lesions. IMPRESSION: More conspicuous 5 mm upper, outer left breast mass, as above. Ultrasound recommended to further rocco luate. BI-RADS Category 0: Incomplete: Needs additional imaging evaluation. Reviewed, dictated and finalized at [facility]. E ADJUSTER IMPRESSION: More conspicuous 5 mm upper, outer left breast mass, as above. Ultrasound claudia mmended to further evaluate. BI-RADS Category 0: Incomplete: Needs additional imaging evaluation.
== END 2024-01-25 14:02 | disposition home or self-care (01) ==
LOC: ANHIMG 14:05
PROVIDERS: PCP Family Medicine Adolescent Medicine; Visit Provider Family Medicine Adolescent Medicine
DX: Z12.31 Encounter for screening mammogram for malignant neoplasm of breast (principal); N63.21 Unspecified lump in the left breast, upper outer quadrant
CPT/HCPCS: 77063; 77067

== ENCOUNTER 2024-02-12 11:41 | Outpatient (CLI) | payer MEDICARE, SELFPAY ==
--- NOTE | ~2024-02-12 | MMUS_ITS ---
EXAMINATION: US breast LT limited, MM diagnostic [facility] LT w byron HISTORY: Follow-up left breast mass TECHNIQUE: Additional 3-D tomosynthesis images of the left breast were performed and synthetic 2-D im ages were generated. CAD analysis was submitted and interpreted. High resolution Limited left breast ultrasound was performed. COMPARISON: Comparison to multiple prior studies sequentially, with oldest reviewed study dated 03/2019. BREAST PARENCHYMAL COMPOSITION: Not dense: There are scattered areas of fibroglandular density. FINDINGS: MAMMOGRAPHIC FINDINGS: There is a circumscribed 5 mm mass in the mid outer aspect of the left breast, posterior third. No sanchez spicious calcifications or architectural distortion. ULTRASOUND: Left breast ultrasound: At 3:00, 14 cm from the nipple there is an lymph node measuring 1.2 x 0.8 x 0 .5 cm without significant thickening. At 3:00, 10 cm from the nipple there is an oval circumscribed 4 mm minimally complicated cyst with low-level internal echoes. No suspicious masses to suggest malign wild. IMPRESSION: 1. No evidence for malignancy in the left breast. Benign findings. 2. Routine yearly screening mammogram and regular clinical breast examination are recommended. BI-RADS Category 2: Benign finding(s). Reviewed, dictated and finalized at location [facility] IMPRESSION: 1. No evidence for malignancy in the left breast. Benign findings. 2. Routine yearly screening mammogram and regular clinical breast examination a re recommended. BI-RADS Category 2: Benign finding(s).
== END 2024-02-12 11:42 | disposition home or self-care (01) ==
LOC: ANHIMG 11:42
PROVIDERS: PCP Family Medicine Adolescent Medicine; Visit Provider Family Medicine Adolescent Medicine
DX: R92.8 Other abnormal and inconclusive findings on diagnostic imaging of breast (principal)
CPT/HCPCS: 76642; 77061; 77065; G0279

== ENCOUNTER 2024-11-14 13:46 | Inpatient (IN) | payer MEDICARE, SELFPAY ==
--- NOTE | ~2024-11-14 | US_ITS ---
US abdomen limited INDICATION: Pancreatitis PROCEDURE: Realtime right upper abdominal ultrasound. COMPARISON: No prior studies for comparison. FINDINGS: Pancreas is hyperechoic. No discrete pancreatic mass. There is fatty infiltration of the liver. No focal hepatic masses. There is normal directional flow in the portal vein. Gallbladder is unremarkable. Common bile duct measures 5 mm. No sonographic Santos's sign. IMPRESSION: 1: Increased pancreatic echotexture, consistent with known pancreatitis. Reviewed, dictated and finalized at location O.
--- NOTE | ~2024-11-14 | XR_ITS ---
EXAMINATION: XR chest 1V portable COMPARISON: No comparisons available. HISTORY: eval for pneumonia FINDINGS: Small left basilar infiltrate and effusion. No pneumothorax. Heart is normal size. Mediastinal and hilar contours are within normal limits. Bony thorax no acute abnormality. Miscellaneous: None Impression: Small left lower lobe pneumonia Reviewed, dictated and finalized at location A. Impression: Small left lower lobe pneumonia
--- NOTE | ~2024-11-14 | CT_ITS ---
EXAMINATION: CT abdomen pelvis w con DATE: 11/14/2024 17:07 INDICATION: Abdomen pain. Diarrhea. TECHNIQUE: Computed tomography (CT) of the abdomen and pelvis was performed with 100 cc Omnipaque 350 intravenous contrast. The dose-length product was 866.35 mGy-cm. Automated exposure control and iterative reconstruction technique were employed. COMPARISON: CT dated 11/19/2023. FINDINGS: There is dependent atelectasis. Large hiatal hernia. Heart size normal. No significant pleural or pericardial effusion. The liver, spleen, adrenal glands and kidneys are unremarkable. There is peripancreatic inflammation and fluid consistent with acute pancreatitis. No evidence for pancreatic necrosis or pseudocyst formation. Bladder is unremarkable. Nonobstructive bowel gas pattern. Small amount of free fluid in the pelvis. Severe lower thoracic and lumbar spondylosis. There is scoliosis. IMPRESSION: 1. Acute uncomplicated pancreatitis. Reviewed, dictated and finalized at location O.
[2024-11-14 13:47] VITALS: BP 159/68; PULSE 88; RESP 18; TEMP 36.9; O2SAT 98
--- OUTSIDE RECORDS SUMMARY | 2024-11-14 14:33 | XMS_ITS | Clinical Summary ---
Author Organization [facility] [place] [address] Address [address] [place] [address] Care Team Providers Care Fabric Sourcer Name Role Phone Horacio Neff MD Primary Care Prov ider Mikey Andersen MD Unavailable [phone] Allergies No known active allergies Medications omeprazole (PriLOSEC) 20 mg capsule take 1 capsule by oral route every day before a meal 0 0 6 Active hydroCHLOROthia zide (HYDRODIURIL) 25 mg tablet take 1 tablet by oral route every day 0 0 6 Active Accu-Chek Softclix Lancets lancets TEST D UTD 0 Active Accu-Chek Emani Plus Meter misc U UTD 0 Active Accu-Chek Emani Plus test strp strip TEST D UTD 0 Active atorvastatin (LIPITOR) 40 mg tablet 1 Active lisinopriL (PRINIVIL,ZESTR IL) 40 mg tablet 4 Active mupirocin (BACTROBAN) 2 % ointment Apply topically 2 (two) times a day Apply to left ear BID 22 g 4 Active aspirin 81 mg chewable tablet Take 1 tablet (81 mg total) by mouth 2 (two) times a day 5 Active celecoxib (CeleBREX) 200 mg capsule Take 1 capsule (200 mg total) by mouth 2 (two) times a day 5 Active Active Problems Problem Noted Date Diagnosed Date CSF otorrhea 11/05/2018 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 Hyperlipidemia LDL goal <70 01/22/2017 Obesity (BMI 35.0-39.9 without comorbidity) 01/04 Nonrheumatic aortic valve stenosis 01/22/2017 Status post knee replacement 12/13/2016 Shortness of breath 11/30/2015 Overview (06/08/2016): Shortness of breath Essential hypertension 11/30/2015 Overview (06/09/2016): Essential hypertension Encounters Date Type Department Care Team Description 10/09/2024 10:45 AM CDT Office Visit [facility] [address] [place] [address] Justice Velasquez MD Nonrheumatic aortic valve stenosis (Primary Dx); Hyperlipidemia LDL goal <70; Essential hypertension; Obesity (BMI 35.0-39.9 without comorbidity) from Last 3 Months Immunizations Immunization Administration Dates Next Due Moderna SARS-CoV-2 Monovalent Vaccination (12+ Y RS) 2020 Surgical History Surgery Date Site/Laterality Comments EAR SURGERY HYSTERECTOMY JOINT REPLACEMENT Left knee replacement TUBAL LIGATION years before hysterectomy THYROID SURGERY mid Medical History Medical History Date Comments Hx Other Medical HTN, obesity, h igh cholesterol, h/o pneumonia, cat; Comments: MAF 11/30/2015 - GERD (gastroesophageal reflu x disease) Arthritis Diabetes mellitus (HCC) Borderline diabetic Heart disease heart murmur Hypertension Sleep apnea Thyroid disease right thyroid remove d. 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 Hearing aid in right ear Family History Medical History Relation Name Comments Other Brother 2 Alive and well; Heart attack Father Myles Fournier Myocardial i nfarction; Heart disease Father Myles Fournier Heart failure Father Myles Fournier Cancer Mother Caty Ross) [place]isa Ca ncer, unknown; Heart disease Mother's Brother Adam Brown Cancer Other 1 family history of cancer; Other Other 2 family history of heart diease; Other Other 3 family history of high blood pressure; Other Other 4 family history of high cholestrol; Other Sister heart related; Kidney disease Son Pepe Wolff Relation Name Status Comments Brother 1 Alive Brother 2 Father Myles Fournier Mother Caty (Stephanie) [place] Mother's Brother Adam Brown Other 1 Other 2 Other 3 Other 4 Sister Son Pepe Wolff Social History Tobacco Use Types Packs/Day Years Used Date Smoking Tobacco: Former Cigarettes 0.5 10 0 03/24/1969 - 03/24/1979 Smokeless Tobacco: Never Tobacco Cessation:Counseling Given: Not Answered Alcohol Use Standard Drinks/Week Comments Yes 1 (1 standard drink = 0.6 oz pur e alcohol) occassionally Comments Unknown Sex and Gender Information Value Date Recorded Sex Assigned at Not on file Legal Sex Female 9:58 PM [employer] Gender Identity Not on file Sexual Orientation Not on file Obstetrics History Last Filed Vital Signs Vital Sign Reading Time Taken Comments Blood Pressure 122/66 10/09/2024 11:08 AM CDT Pulse 66 10/09/2024 11:08 AM CDT Temperature 36.3 C (97.3 F) 09/12/2019 10:04 AM CDT Respiratory Rate - - Oxygen Saturation 97% 10/09/2024 11:08 AM CDT Inhaled Oxygen Concentration - - Weight 89.4 kg (197 lb) 10/09/2024 11:08 AM CDT Height 160 cm (5' 3) 10/09/2024 11:08 AM CDT Body Mass Index 34.9 10/09/2024 11:08 AM CDT Plan of Treatment Health Maintenance Due Date Last Done Comments Depression Screening 1945 Fall Risk Assessment 1945 Hepatitis C Screening 1945 Osteoporosis Screening-Bone Density Scan 1945 DTaP/Tdap/Td Vaccine (1 - Tdap) 1956 Hepatitis B Screening 05/16/1963 Pneumococcal vaccine 65+ (1 of 2 - PCV) 1964 Zoster Vaccine (1 of 2) 05/16/1995 Well Visit 65+ 2010 Covid-19 Vaccine (2 - season) 2024 Influenza Vaccine (#1) 2024 Insurance [facility] MEDICARE ADVANTAGE [facility] MED[employer] ADV[employer]AGE [facility] MED[employer]AGE Care Teams Fabric Sourcer Relationship Specialty Start Date End Date Horacio Neff MD PCP - General 02/01/16 Mikey Andersen MD [address] [place] [address] Referring Physician Otolaryngology 09/06/18
--- OUTSIDE RECORDS SUMMARY | 2024-11-14 14:33 | XMS_ITS | Clinical Summary ---
Author Organization [facility] Address [address] [place] [address] Care Team Providers Care Manager Publishing Name Role Phone Horacio Neff MD Primary Care Provider + Roland Rader MD Unavailable [phone] Justice Velasquez MD Unavailable [phone] Source Comments [facility],non-owned Affiliates and Associated Physician Practices is amultiple site organization consisting of ambulatory clinics and hospital sitesin [place], [place], [place] and [place]. This disclosure is being madepursuant to the Care Everywhere program and may not contain all information available regarding this patient. Last updated 17.[facility] Allergies No known active allergies Medications * Be aware that medications may not be up to date on this document. Alwaysverify current medications with the patient. hydroCHLOROthi azide (HYDRODIURIL) 25 MG tablet Take 1 (one) tablet by mouth once daily Active omeprazole (PRILOSEC) 20 MG capsule Take 1 (one) capsule by mouth daily before breakfast Active atorvastatin (Lipitor) 40 MG tablet 5 Active lisinopril (Prinivil; Zestril) 40 MG tablet Take 1 (one) tablet by mouth once daily 4 Active cetirizine (ZyrTEC) 10 MG chew tablet Take 1 (one) tablet by mouth at bedtime (chew and swallow) Active acetaminophen (Tylenol) 500 MG tablet Take 2 (two) tablets by mouth 3 times daily Maximum allowable Acetaminophen amount = 4 Grams (4000 mg) / 24 hours. Take every three times a day for the first 10 days when home. After 10 days, take as needed. Active celecoxib (CeleBREX) 200 MG capsule TAKE 1 CAPSULE BY MOUTH TWICE DAILY FOR 42 DAYS 180 capsule 2 Active aspirin (Aspirin) 81 MG chew tablet Chew and swallow 1 (one) tablet by mouth 2 times daily for 42 days. Take until 11/03/24 for blood clot prevention. 84 tablet 09/23/2024 9:47 AM CDT 5 025 Active Problems Problem Noted Date Diagnosed Date Status post right knee replacement 09/22/2024 Nonrheumatic aortic valve stenosis 01/22/2017 Status post knee replacement 12/13/2016 Essential hypertension 11/30/2015 Overview (12/18/2017): Overview: Essential hypertension Encounters Date Type Department Care Team Description 11/04/2024 11:20 AM CDT Office Visit [facility] [address] [place] [address], [address] [phone] Roland Rader MD Aftercare following right knee joint replacement surgery (Primary Dx) 11/04/2024 11:05 AM CDT Ancillary Procedure [facility] - Radiology [address] [place] [phone] Roland Rader MD Aftercare following right knee joint replacement surgery 10/13/2024 10:15 AM CDT Office Visit [facility] [address] [place] [address], [address] [phone] Justice Scott, CLIENT EXPERIENCE SPECIALIST-CASINO CHANGE ATTENDANT Aftercare following right knee joint replacement surgery (Primary Dx) 09/26/2024 Telephone [facility] [address] [place] [address], [address] [phone] Roland Rader MD Question 09/25/2024 Refill [facility] [address] [place] [address], [address] [phone] Roland Rader MD Refill Request 09/25/2024 Telephone [facility] [address] [facility], [address] [place] [phone] Roland Rader MD Home Health 09/22/2024 8:03 AM CDT Anesthesia Event [facility] - Perioperative Surgery [id number] [place] [address] David Gutiérrez MD 09/22/2024 7:37 AM CDT - 09/22/2024 9:55 AM CDT Surgery [facility] - Perioperative Surgery [id number] [place] [address] Roland Rader MD ARTHROPLASTY RIGHT TOTAL KNEE 09/22/2024 6:25 AM CDT - 09/23/2024 1:15 PM CDT Hospital Encounter [address] [facility] [address] [place] [address] Roland Rader MD Surgery General Discharge Disposition: Home Health Care Sv 09/22/2024 Travel 09/09/2024 12:26 PM CDT - 09/09/2024 11:59 PM CDT Hospital Encounter [facility] [address] [place] [address] Roland Rader MD Discharge Disposition: Home or Self Care 09/09/2024 Results Follow-Up [facility] [address] [place] [address] Josh Leblanc, CLIENT EXPERIENCE SPECIALIST-CASINO CHANGE ATTENDANT 09/09/2024 Travel 08/21/2024 Travel from Last 3 Months Social History Tobacco Use Types Packs/Day Years Used Date Smoking Tobacco: Never Smokeless Tobacco: Never Alcohol Use Standard Drinks/Week Comments No 0 (1 standard drink = 0.6 oz pur e alcohol) occassional AUDIT-C Answer Date Recorded Q1: How often do you have a drink containing alc ohol? Monthly or less 09/22/2024 Q2: How many drinks containi ng alcohol do you have on a typical day when you are drinking? 1 or 2 09/22/2024 Q3: How often do you have si x or more drinks on one occasion? Less than monthly 09/22/2024 PHQ-2 Answer Date Recorded Patient Health Questionnaire-2 Score 0 10/28/2024 Comments Unknown Sex and Gender Information Value Date Recorded Sex Assigned at Not on file Legal Sex Female 9:46 AM CDT Gender Identity Not on file Sexual Orientation Not on file Last Filed Vital Signs Vital Sign Reading Time Taken Comments Blood Pressure 122/57 09/23/2024 11:07 AM CDT Pulse 61 09/23/2024 11:07 AM CDT Temperature 36.7 C (98.1 F) 09/23/2024 8:37 AM CDT Respiratory Rate 18 09/23/2024 8:37 AM CDT Oxygen Saturation 97% 09/23/2024 11: 07 AM CDT Inhaled Oxygen Concentration - - Weight 89.7 kg (197 lb 12.8 oz) 09/22/2024 6:51 AM CDT Height 149.9 cm (4' 11) 09/22/2024 6:51 AM CDT Body Mass Index 39.95 09/22/2024 6:51 AM CDT Plan of Treatment Health Maintenance Due Date Last Done Comments BONE DENSITY TESTING 1945 DTAP/TDAP/TD VACCINES (1 - Tdap) 1964 PNEUMOCOCCAL VACCINE 50+ (1 of 1 - PCV) 05/16/1995 ZOSTER VACCINE (1 of 2) 05/16/1995 Respiratory Syncytial Virus (RSV) Vaccine Pt: or over 60 yrs (1 - 1-dose 75+ series) 2020 MEDICARE AWV CALENDAR YEAR 2024 COVID-19 VACCINE ( season) 2024 12/16/2021, 01/03/2021, 2020, Additional history exists INFLUENZA VACCINE (#1) 2024 11/29/2023, 2020 DEPRESSION SCREENING Completed 08/05/2024 HEPATITIS B VACCINE Aged Out No longe r eligible based on patient's age to complete this topic HIB VACCINE Aged Out No longer eligi ble based on patient's age to complete this topic HPV VACCINE Aged Out No longer eligi ble based on patient's age to complete this topic MENINGOCOCCAL (Group B) VACCINE SHARED DECISION-MAKING Aged Out No longer eligible based on patient's age to complete this topic MENINGOCOCCAL GROUPS A/C/Y/W VACCINE Aged Out No longer eligible based on patient's age to complete this topic Medical Devices Implanted Type Area Shoemaking Finisher Device Identifier Shelf Expiration Date Model / Serial / Lot Cmnt Bone Cblt 40gm Hvisc Strl Implanted:Qty: 1 on 12/13/2016 by Roland Rader MD at [facility] Left: Knee [employer] 05/02/2018 [id number] / / [id number] Cmpnt Fem Kn Lt Cr Cmnt Prm Vngrd Intlk Implanted:Qty: 1 on 12/13/2016 by Roland Rader MD at [facility] Left: Knee [employer] 11/04/2026 [id number] / / [id number] Cmpnt Ptlr 28mm 1 Pg Wire Ascnt Arcm Kn Implanted:Qty: 1 on 12/13/2016 by Roland Rader MD at [facility] Left: Knee [employer] 11/01/2021 [id number] / / [id number] Tray Tib 71mm Kn Cocr I Beam Implanted:Qty: 1 on 12/13/2016 by Roland Rader MD at [facility] Left: Knee [employer] 08/23/2026 [id number] / / [id number] Brng [id number] Vngrd Arcm Kn Ant Stab Implanted:Qty: 1 on 12/13/2016 by Roland Rader MD at [facility] Left: Knee [employer] 08/12/2021 [id number] / / [id number] Brng 57n43pp Vngrd Vivacit-E Kn Ant Stab Implanted:Qty: 1 on 09/22/2024 by Roland Rader MD at [facility] Right: Knee [employer] 07/21/2029 [id number] / / [id number] Cmnt Bone Plc R 40gm Grn Implanted:Qty: 1 on 09/22/2024 by Roland Rader MD at [facility] Right: Knee [employer] 01/02/2027 [id number] / / [id number] Cmpnt Ptlr Std 28mm 3 Pg Kn Ser A Implanted:Qty: 1 on 09/22/2024 by Roland Rader MD at [facility] Right: Knee [employer] 07/18/2029 [id number] / / [id number] Tray Tib 71mm Kn Cocr I Beam Implanted:Qty: 1 on 09/22/2024 by Roland Rader MD at [facility] Right: Knee [employer] 07/11/2034 [id number] / / [id number] Cmpnt Fem Kn Rt Cr Cmnt Prm Vngrd Intlk 62.5mm Implanted:Qty: 1 on 09/22/2024 by Roland Rader MD at [facility] Right: Knee [employer] 05/17/2034 [id number] / / [id number] Procedures Procedure Name Priority Date/Time Associated Diagnosis Comments XR KNEE RIGHT 3VW Routine 11/04/2024 11: 09 AM CDT Aftercare following right knee joint replacement surgery NEURAXIAL BLOCK Routine 09/22/2024 8:31 AM CDT AL TOTAL KNEE REPLACEMENT 09/22/2024 7:37 AM CDT Special Needs BIOMET (SOHA) NOTIFIED-KS EKG 12-LEAD STAT 09/09/2024 12:44 PM CDT Preop testing COMPREHENSIVE METABOLIC PANEL STAT 09/09/2024 12:40 PM CDT Preop testing CBC W AUTO DIFFERENTIAL STAT 09/09/2024 12:40 PM CDT Preop testing from Last 3 Months Results * XR Knee Right 3Vw (11/04/2024 11:09 AM CDT) Narrative [facility] [address] - 11/04/2024 11:09 AM CDT Please see progress note in Epic for results. us Roland Rader MD DIAGNOSTIC IMAGING ORDERABLES Final Result [facility] [address] * Neuraxial Block (09/22/2024 8:31 AM CDT) Narrative Mohsen Cornell APRN-CRNA - 09/22/2024 8:31 AM CDT Mohsen Cornell APRN-CRNA 09/22/2024 8:32 AM Neuraxial Block Note Pre-Procedure: Procedure Name: Neuraxial Block Patient Location: OR Indications: surgical anesthesia Pre-Anesthetic Checklist: Patient identified, IV Checked, Risks and benefits discussed, Surgical consent verified, Monitors and equipment, Site examined, Pre-op evaluation done, Informed consent obtained, Questions answered/anesthesia questions answered and Allergies reviewed Anticoagulation/ Anti-thrombosis status confirmed? Yes Supplemental O2: room air Monitors: continuous pluse ox and BP Patient Condition: sedated, meaningful contact maintained throughout procedure Patient Sedated? Nursing sedation administration Sedation Type: mild Sedation Agents (manual): versed fentanyl mL Procedure: Block Type: Spinal Prep: Betadine Sterile Field: mask, cap/hat, sterile established and sterile gloves Approach: left paramedian Skin was localized? Nursing documentation on [facility] Skin localized with: Lidocaine 1% and 4 mL Spinal Block: Needle Type: spinal needle Needle Gauge: 22 Needle Length: 90 mm Placement Site: L3-4 Number of Attempts: Other - please comment (4) CSF: free flow, aspiration before injection Local anesthetics used? Nursing documentation on the [facility] Spinal Local Anesthetic: Bupivacaine: 0.75% in dextrose 1.6 mL Degree of difficulty: marked Procedure Tolerance: performed while the patient was sedated tolerated well Sensory Level: lower level Motor Blockade: Yes Position post procedure: supine Vital Signs: Vital signs monitored and stable throughout. See anesthesia record for details. Start Time: 09/22/2024 8:03 AM End Time: 09/22/2024 8:18 AM Total Time: 15 Staff: Anesthesia Provider: Mohsen Cornell APRN-CRNA - performed the procedure us David Gutiérrez MD GENERAL ANESTHESIA ORDERABLES Fi nal Result * EKG 12-Lead (09/09/2024 12:44 PM CDT) Pathologist [facility] Ventricular Rate 65 BPM [facility] Atrial Rate 65 BPM [facility] P-R Interval 152 ms [facility] QRS Duration ms 80 ms [facility] Q-T Interval ms 384 ms [facility] QTC Calculation (Bezet) 399 ms [facility] Calculated P Davis 74 degrees [facility] Calculated R Davis 24 degrees [facility] Calculated T Davis 35 degrees [facility] Interpretation EKG Normal sinus rhythm Normal ECG When compared with ECG of 21-NOV-2016 10:43, Premature ventricular complexes are no longer Present Confirmed by ERNA FERRIS MD ([id number]) on 09/09/2024 8:57:41 PM [facility] 09/09/2024 12:4 4 PM CDT 09/09/2024 8:57 PM CDT us Dania Mo DO ECG ORDERABLES Edited Result - Final [facility] * (ABNORMAL) CBC W AUTO DIFFERENTIAL (09/09/2024 12:40 PM CDT) WBC 9.8 4.0 - 10.7 x10E9/L 09/09/2024 12:59 PM CDT [facility] RBC Count 4.21 3.90 - 5.20 x10E12/L 09/09/2024 12:59 PM CDT [facility] Hemoglobin 12.2 11.9 - 15.8 g/dL 09/09/2024 12:59 PM CDT [facility] Hematocrit 36.5 34.8 - 46.1 % 09/09/2024 12:59 PM CDT [facility] MCV 86.7 80.0 - 98.0 fL 09/09/2024 12:59 PM CDT [facility] MCH 29.0 26.7 - 33.6 pg 09/09/2024 12:59 PM CDT [facility] MCHC 33.4 31.7 - 36.3 g/dL 09/09/2024 12:59 PM CDT [facility] RDW-CV 13.3 11.3 - 14.8 % 09/09/2024 12:59 PM CDT [facility] Platelet Count 254 150 - 420 x10E9/L 09/09/2024 12:59 PM CDT [facility] MPV 11.1 7.8 - 11.4 fL 09/09/2024 12:59 PM CDT [facility] Neutrophil % 74.1(H) 41.0 - 74.0 % 09/09/2024 12:59 PM CDT [facility] Lymphocyte % 17.5 17.0 - 47.0 % 09/09/2024 12:59 PM CDT [facility] Monocyte % 6.9 3.0 - 11.0 % 09/09/2024 12:59 PM CDT [facility] Eosinophil % 0.9 0.0 - 7.0 % 09/09/2024 12:59 PM CDT [facility] Basophil % 0.3 0.0 - 1.6 % 09/09/2024 12:59 PM CDT [facility] Immature Granulocytes % 0.3 0.0 - 1.0 % 09/09/2024 12:59 PM CDT [facility] Neutrophil Absolute 7.28 1.60 - 7.50 x10E9/L 09/09/2024 12:59 PM CDT [facility] Lymphocyte Absolute 1.72 1.00 - 4.40 x10E9/L 09/09/2024 12:59 PM CDT [facility] Monocyte Absolute 0.68 0.15 - 1.00 x10E9/L 09/09/2024 12:59 PM CDT [facility] Eosinophil Absolute 0.09 0.00 - 0.60 x10E9/L 09/09/2024 12:59 PM CDT [facility] Basophil Absolute 0.03 0.00 - 0.13 x10E9/L 09/09/2024 12:59 PM CDT [facility] Blood BLOOD SPECIMEN / Unknown Venipuncture / Unknown 09/09/2024 12:40 PM CDT 09/09/2024 12:55 PM CDT us Josh Leblanc CLIENT EXPERIENCE SPECIALIST-CASINO CHANGE ATTENDANT LAB - HEMATOLOGY ORDERAB LES Final Result [facility] [address] [place] [address] * (ABNORMAL) COMPREHENSIVE METABOLIC PANEL (09/09/2024 12:40 PM CDT) [facility] Glucose 133(H) 70 - 99 mg/dL 09/09/2024 1:11 PM CDT [facility] Sodium 136 136 - 145 mmol/L 09/09/2024 1:11 PM CDT [facility] Potassium 4.1 3.5 - 5.1 mmol/L 09/09/2024 1:11 PM CDT [facility] Chloride 103 98 - 107 mmol/L 09/09/2024 1:11 PM CDT [facility] CO2 24 22 - 29 mmol/L 09/09/2024 1:11 PM CDT [facility] Calcium 9.6 8.4 - 10.4 mg/dL 09/09/2024 1:11 PM CDT [facility] Anion Gap 9 6 - 16 mmol/L 09/09/2024 1:11 PM CDT [facility] BUN 23 7 - 26 mg/dL 09/09/2024 1:11 PM CDT [facility] Creatinine 0.97 0.57 - 1.11 mg/dL 09/09/2024 1:11 PM [facility] Alkaline Phosphatase 87 40 - 150 U/L 09/09/2024 1:11 PM CDT [facility] ALT 15 6 - 57 U/L 09/09/2024 1:11 PM CDT [facility] AST 21 10 - 48 U/L 09/09/2024 1:11 PM CDT [facility] Protein Total 7.8 6.4 - 8.3 gm/dL 09/09/2024 1:11 PM CDT [facility] Albumin 4.1 3.1 - 4.5 gm/dL 09/09/2024 1:11 PM CDT [facility] Bilirubin Total 0.4 0.2 - 1.2 mg/dL 09/09/2024 1:11 PM [facility] eGFR by CKD-EPI 59(L) >=90 mL/min/1.7 3 m2 09/09/2024 1:11 PM [facility] Comment:Estimated Glomerular Filtration Rate (eGFR) calculated using the CKD-EPI Creatinine Equation (2020), per the National Kidney Foundation and [place] [employer]ph[employer] recommendations. Blood BLOOD SPECIMEN / Unknown Venipuncture / Unknown 09/09/2024 12:40 PM CDT 09/09/2024 12:55 PM CDT Josh Leblanc APRN-CASINO CHANGE ATTENDANT LAB - CHEMISTRY ORDERABL ES Final Result [facility] [address] [place] [id number] from Last [address] [facility] MANAGED MEDICARE ADV [facility] MANAGED MEDICARE ADV Advance Directives Documents on File Type Date Recorded Patient Home Care Consultant Expl anation Adv Directive/Living Will/POA 12/18/2016 8:53 PM * Full Code (Latest Code Status on File) Date Activated Date Inactivated Comments 09/22/2024 10:59 AM 09/23/2024 3:34 PM * Full Code Date Activated Date Inactivated Comments 12/13/2016 2:11 PM 12/16/2016 12:36 PM Care Teams Manager Publishing Relationship Specialty Start Date End Date Horacio Neff MD [address] [place] [address] PCP - General Family Medicine 09/14/16 [place] [id number] [address] Orthopedic Surgery 09/14/16 Justice Velasquez MD [address] [facility] [address] [place] [address] Cardiovascular Disease 09/10/24
[2024-11-14 15:13] LABS: Hematocrit 37.7 % (37.0-47.0); Hemoglobin 12.5 g/dL (12.0-15.0); Immature Granulocyte Percent A 0.5 % (0-0.5); Lymphocytes Absolute Auto 1.45 K/mm3 (0.9-3.2); Mean Corpuscular HGB Conc 33.2 g/dl (32-36); Mean Corpuscular Hemoglobin 29.1 pg (26-34); Mean Corpuscular Volume 87.9 fl (80-100); Nucleated Red Blood Cells Absolute Auto 0.000 K/mm3 (0.0-0.012); Nucleated Red Blood Cells Perc 0.0 % (0.0-0.2); Platelet Count Result 323 k/mm3 (150-375); Red Blood Count 4.29 M/mm3 (4.2-5.4); White Blood Count 15.5 K/mm3 (4.5-10.0)
[2024-11-14 15:22] LABS: Add Urine Microscopic? NO; Appearance Urine Clear (Clear); Glucose Urine UA Negative (Negative); Leukocyte Esterase Ur Negative LEU/UL (Negative); Nitrate Urine Negative (Negative); Specific Grav Ur 1.016 (1.001-1.035)
--- OUTSIDE RECORDS SUMMARY | 2024-11-14 15:26 | XMS_ITS | Clinical Summary ---
Author Organization [facility] [employer] Address [address] [place] [address] Care Team Providers Care Automotive Artist Name Role Phone Horacio Neff MD Primary Care Provider + Roland Rader MD Unavailable [phone] Justice Velasquez MD Unavailable [phone] Source Comments [facility],non-owned Affiliates and Associated Physician Practices is amultiple site organization consisting of ambulatory clinics and hospital sitesin [place], [place], [place] and [place]. This disclosure is being madepursuant to the Care Everywhere program and may not contain all information available regarding this patient. Last updated 17.[facility] [employer] Allergies No known active allergies Medications * [...] Description 11/04/2024 11:20 AM CDT Office Visit [facility] [address] [place] [address], [address] [phone] Roland Rader MD Aftercare following right knee joint replacement surgery (Primary Dx) 11/04/2024 11:05 AM CDT Ancillary Procedure [facility] - Radiology [address] [place] [phone] Roland Rader MD Aftercare following right knee joint replacement surgery 10/13/2024 10:15 AM CDT Office Visit [facility] [address] [place] [address], [address] [phone] Justice Scott, SENIOR BUSINESS PROCESS ANALYST-SOLAR INSTALLATION HELPER Aftercare following right knee joint replacement surgery (Primary Dx) 09/26/2024 Telephone [facility] [address] [place] [address], [address] [phone] Roland Rader MD Question 09/25/2024 Refill [facility] [address] [place] [address], [address] [phone] Roland Rader MD Refill Request 09/25/2024 Telephone [facility] [address] [facility], [address] [place] [phone] Roland Rader MD Home Health 09/22/2024 8:03 AM CDT Anesthesia Event [facility] - Perioperative Surgery [id number] [place] [id number] David Gutiérrez MD 09/22/2024 7:37 AM CDT - 09/22/2024 9:55 AM CDT Surgery [facility] - Perioperative Surgery [id number] [place] [id number] Roland Rader MD ARTHROPLASTY RIGHT TOTAL KNEE 09/22/2024 6:25 AM CDT - 09/23/2024 1:15 PM CDT Hospital Encounter [address] [facility] [address] [place] [address] Roland Rader MD Surgery General Discharge Disposition: Home Health Care Sv 09/22/2024 Travel 09/09/2024 12:26 PM CDT - 09/09/2024 11:59 PM CDT Hospital Encounter [facility] [address] [place] [address] Roland Rader MD Discharge Disposition: Home or Self Care 09/09/2024 Results Follow-Up [facility] [address] [place] [address] Josh Leblanc, SENIOR BUSINESS PROCESS ANALYST-SOLAR INSTALLATION HELPER 09/09/2024 Travel 08/21/2024 Travel from Last 3 [...] this topic Medical Devices Implanted Type Area Color Print Inspector Device Identifier Shelf Expiration Date Model / Serial / Lot Cmnt Bone Cblt 40gm Hvisc Strl Implanted:Qty: 1 on 12/13/2016 by Roland Rader MD at [facility] Left: Knee [employer] 05/02/2018 [id number] / / [id number] Cmpnt Fem Kn Lt Cr Cmnt Prm Vngrd Intlk Implanted:Qty: 1 on 12/13/2016 by Roland Rader MD at [facility] Left: Knee [employer] 11/04/2026 [id number] / / [id number] Cmpnt Ptlr 28mm 1 Pg Wire Ascnt Arcm Kn Implanted:Qty: 1 on 12/13/2016 by Roland Rader MD at [facility] Left: Knee [employer] 11/01/2021 [id number] / / [id number] Tray Tib 71mm Kn Cocr I Beam Implanted:Qty: 1 on 12/13/2016 by Roland Rader MD at [facility] Left: Knee [employer] 08/23/2026 [id number] / / [id number] Brng [id number] Vngrd Arcm Kn Ant Stab Implanted:Qty: 1 on 12/13/2016 by Roland Rader MD at [facility] Left: Knee [employer] 08/12/2021 [id number] / / [id number] Brng [id number] Vngrd Vivacit-E Kn Ant Stab Implanted:Qty: 1 on 09/22/2024 by Roland Rader MD at [facility] Right: Knee [employer] 07/21/2029 [id number] / / [id number] Cmnt Bone Plc R 40gm Grn Implanted:Qty: 1 on 09/22/2024 by Roland Rader MD at [facility] Right: Knee [employer] 01/02/2027 [id number] / / [id number] Cmpnt Ptlr Std 28mm 3 Pg Kn Ser A Implanted:Qty: 1 on 09/22/2024 by Roland Rader MD at [facility] Right: Knee [employer] 07/18/2029 [id number] / / [id number] Tray Tib 71mm Kn Cocr I Beam Implanted:Qty: 1 on 09/22/2024 by Roland Rader MD at [facility] Right: Knee [employer] 07/11/2034 [id number] / / [id number] Cmpnt Fem Kn Rt Cr Cmnt Prm Vngrd Intlk 62.5mm Implanted:Qty: 1 on 09/22/2024 by Roland Rader MD at [facility] Right: Knee [employer] 05/17/2034 [id number] / / [id number] Procedures Procedure Name Priority Date/Time Associated Diagnosis Comments XR KNEE RIGHT 3VW Routine 11/04/2024 11: 09 AM CDT Aftercare following right knee joint replacement surgery NEURAXIAL BLOCK Routine 09/22/2024 8:31 AM CDT VA TOTAL KNEE REPLACEMENT 09/22/2024 7:37 AM CDT Special Needs BIOMET (SOHA) NOTIFIED-KS EKG 12-LEAD STAT 09/09/2024 12:44 PM CDT Preop testing COMPREHENSIVE METABOLIC PANEL STAT 09/09/2024 12:40 PM CDT Preop testing CBC W AUTO DIFFERENTIAL STAT 09/09/2024 12:40 PM CDT Preop testing from Last 3 Months Results * XR Knee Right 3Vw (11/04/2024 11:09 AM CDT) Narrative [facility] [address] - 11/04/2024 11:09 AM CDT Please see progress note in Epic for results. us Roland Rader MD DIAGNOSTIC IMAGING ORDERABLES Final Result [facility] [address] * Neuraxial Block [...] paramedian Skin was localized? Nursing documentation on [facility] Skin localized with: Lidocaine 1% and 4 mL Spinal Block: Needle Type: spinal needle Needle Gauge: 22 Needle Length: 90 mm Placement Site: L3-4 Number of Attempts: Other - please comment (4) CSF: free flow, aspiration before injection Local anesthetics used? Nursing documentation on the [facility] Spinal Local Anesthetic: Bupivacaine: 0.75% in [...] EKG 12-Lead (09/09/2024 12:44 PM CDT) Pathologist [facility] Ventricular Rate 65 BPM [facility] Atrial Rate 65 BPM [facility] P-R Interval 152 ms [facility] QRS Duration ms 80 ms [facility] Q-T Interval ms 384 ms [facility] QTC Calculation (Bezet) 399 ms [facility] Calculated P [place] 74 degrees [facility] Calculated R [place] 24 degrees [facility] Calculated T [place] 35 degrees [facility] Interpretation EKG Normal sinus rhythm Normal ECG When compared with ECG of 21-NOV-2016 10:43, Premature ventricular complexes are no longer Present Confirmed by ERNA FERRIS MD ([id number]) on 09/09/2024 8:57:41 PM [facility] MUSE 09/09/2024 [...] - 74.0 % 09/09/2024 12:59 PM CDT [facility] Lymphocyte % 17.5 17.0 - 47.0 % 09/09/2024 12:59 PM CDT [facility] Monocyte % 6.9 3.0 - 11.0 % 09/09/2024 12:59 PM CDT [facility] Eosinophil % 0.9 0.0 - 7.0 % 09/09/2024 12:59 PM CDT [facility] Basophil % 0.3 0.0 - 1.6 % 09/09/2024 12:59 PM CDT [facility] Immature Granulocytes % 0.3 0.0 - 1.0 % 09/09/2024 12:59 PM CDT [facility] Neutrophil Absolute 7.28 1.60 - 7.50 x10E9/L 09/09/2024 12:59 PM CDT [facility] Lymphocyte Absolute 1.72 1.00 - 4.40 x10E9/L 09/09/2024 12:59 PM CDT [facility] Monocyte Absolute 0.68 0.15 - 1.00 x10E9/L 09/09/2024 12:59 PM CDT [facility] Eosinophil Absolute 0.09 0.00 - 0.60 x10E9/L 09/09/2024 12:59 PM CDT [facility] Basophil Absolute 0.03 0.00 - 0.13 x10E9/L 09/09/2024 12:59 PM CDT [facility] Blood BLOOD SPECIMEN / Unknown Venipuncture / Unknown 09/09/2024 12:40 PM CDT 09/09/2024 12:55 PM CDT us Josh Leblanc SENIOR BUSINESS PROCESS ANALYST-SOLAR INSTALLATION HELPER LAB - HEMATOLOGY ORDERAB LES Final Result [facility] [address] [place] [address] * (ABNORMAL) COMPREHENSIVE METABOLIC PANEL (09/09/2024 12:40 PM CDT) [facility] Glucose 133(H) 70 - 99 mg/dL 09/09/2024 1:11 PM CDT [facility] Sodium 136 136 - 145 mmol/L 09/09/2024 1:11 PM CDT [facility] Potassium 4.1 3.5 - 5.1 mmol/L 09/09/2024 1:11 PM CDT [facility] Chloride 103 98 - 107 mmol/L 09/09/2024 1:11 PM CDT [facility] CO2 24 22 - 29 mmol/L 09/09/2024 1:11 PM CDT [facility] Calcium 9.6 8.4 - 10.4 mg/dL 09/09/2024 1:11 PM CDT [facility] Anion Gap 9 6 - 16 mmol/L 09/09/2024 1:11 PM CDT [facility] BUN 23 7 - 26 mg/dL 09/09/2024 1:11 PM CDT [facility] Creatinine 0.97 0.57 - 1.11 mg/dL 09/09/2024 1:11 PM [facility] Alkaline Phosphatase 87 40 - 150 U/L 09/09/2024 1:11 PM CDT [facility] ALT 15 6 - 57 U/L 09/09/2024 1:11 PM CDT [facility] AST 21 10 - 48 U/L 09/09/2024 1:11 PM CDT [facility] Protein Total 7.8 6.4 - 8.3 gm/dL 09/09/2024 1:11 PM CDT [facility] Albumin 4.1 3.1 - 4.5 gm/dL 09/09/2024 1:11 PM CDT [facility] Bilirubin Total 0.4 0.2 - 1.2 mg/dL 09/09/2024 1:11 PM [facility] eGFR by CKD-EPI 59(L) >=90 mL/min/1.7 3 m2 09/09/2024 1:11 PM [facility] Comment:Estimated Glomerular Filtration Rate (eGFR) calculated using the CKD-EPI Creatinine Equation (2020), per the National Kidney Foundation and [place] [employer] Neph[employer] recommendations. Blood BLOOD SPECIMEN / Unknown Venipuncture / Unknown 09/09/2024 12:40 PM CDT 09/09/2024 12:55 PM CDT Josh Leblanc APRN-SOLAR INSTALLATION HELPER LAB - CHEMISTRY ORDERABL ES Final Result [facility] [address] [place] [id number] from Last 3 Months Insurance [facility] MANAGED MEDICARE ADV [facility] MANAGED MEDICARE ADV Advance Directives Documents on File Type Date Recorded Patient Email Engineer Expl anation Adv Directive/Living Will/POA 12/18/2016 8:53 PM * Full Code (Latest Code Status on File) Date Activated Date Inactivated Comments 09/22/2024 10:59 AM 09/23/2024 3:34 PM * Full Code Date Activated Date Inactivated Comments 12/13/2016 2:11 PM 12/16/2016 12:36 PM Care Teams Automotive Artist Relationship Specialty Start Date End Date Horacio Neff MD [address] [place] [address] PCP - General Family Medicine 09/14/16 [place] [address] [address] Orthopedic Surgery 09/14/16 Justice Velasquez MD [address] [facility] [address] [place] [address] Cardiovascular Disease 09/10/24
--- OUTSIDE RECORDS SUMMARY | 2024-11-14 15:26 | XMS_ITS | Clinical Summary ---
Author Organization [facility] [address] Address [address] [place] [address] Care Team Providers Care Package Sealer Name Role Phone Horacio Neff MD Primary Care Prov ider Mikey Andersen MD Unavailable [phone] Allergies No known active allergies Medications omeprazole [...] Description 10/09/2024 10:45 AM CDT Office Visit [facility] Card[facility] [address] [place] [address] Justice Velasquez MD Nonrheumatic aortic valve stenosis [...] on file Legal Sex Female 9:58 PM APARTMENT LOCATOR Gender Identity Not on file Sexual Orientation [...] season) 2024 Influenza Vaccine (#1) 2024 Insurance [facility] MEDICARE ADVANTAGE [facility] MEDICARE ADVANTAGE [facility] MEDICARE ADVANTAGE Care Teams Package Sealer Relationship Specialty Start Date End Date Horacio Neff MD PCP - General 02/01/16 Mikey Andersen MD [address] [place] [address] Referring Physician Otolaryngology 09/06/18
--- NOTE | 2024-11-14 16:04 | ED.ABDPAIN ---
HPI - Abdominal Pain General Chief Complaint: Abdominal Pain <VICTOR M Marmolejo Last Filed: 11/14/24 19:00> Stated Complaint: abd pain, constipation <VICTOR M Marmolejo Last Filed: 11/14/24 19:00> Time Seen by Provider: 11/14/24 14:48 <VICTOR M Marmolejo Last Filed: 11/14/24 19:00> Source: patient <VICTOR M Marmolejo Last Filed: 11/14/24 19:00> Mode of arrival: ambulatory <VICTOR M Marmolejo Last Filed: 11/14/24 19:00> Limitations: no limitations <VICTOR M Marmolejo Last Filed: 11/14/24 19:00> History of Present Illness HPI narrative: Patient is a 79-year-old female who presents the ED with report of abdominal pain. Patient lives at [facility]. She reports she had dinner last night and began feeling ill. She felt the urge to have a bowel movement and had diffuse pain across her abdomen. She had diarrhea and vomiting at that time. She felt slightly improved after the diarrhea and vomiting, but has still had persistent pain throughout her abdomen. Has not had any bowel movements or flatulence since then. Contacted her primary care doctor and was referred to the ED for further evaluation. Denies fevers. <VICTOR M Marmolejo Last Filed: 11/14/24 19:00> Related Data Home Medications: Home Medications ?Medication ?Instructions ?Recorded ?Confirmed ?Last Taken ?Type acetaminophen 325 mg capsule 650 mg PO Q6H PAIN 11/14/24 11/14/24 Unknown History <VICTOR M Marmolejo Last Filed: 11/14/24 19:00> Allergies/Adverse Reactions: Allergies Allergy/AdvReac Type Severity Reaction Status Date / Time No Known Allergies Allergy Verified 06/17/24 09:29 <VICTOR M Marmolejo Last Filed: 11/14/24 19:00> Review of Systems Review of Systems: All systems reviewed & are unremarkable except as noted in HPI. <Brittany Santos PA-C - Last Filed: 11/14/24 19:00> All systems reviewed & are unremarkable except as noted in HPI and below <Brittany Santos PA-C - Last Filed: 11/14/24 19:00> PENDING SALE TO [facility] Past Medical History Medical History: Medical History (Updated 11/14/24 @ 22:15 by Kailyn Soni DO) Diastolic dysfunction Nonrheumatic aortic (valve) stenosis Gastro-esophageal reflux disease without esophagitis Chronic kidney disease, stage 3a Normal colonoscopy 09/22 GERD (gastroesophageal reflux disease) ANAIS (obstructive sleep apnea) Hypertension Hyperlipidemia <Brittany Santos PA-C - Last Filed: 11/14/24 19:00> Surgical History Surgical History: Surgical History (Updated 11/14/24 @ 22:11 by Kailyn Soni DO) Status post insertion of dental implant H/O abdominal surgery History of total right knee replacement (09/2024) History of partial thyroidectomy Right History of umbilical hernia repair (12/2023) 12/17/23 DaVinci assisted UHR repair with mesh Akin Roque MD History of knee replacement procedure of left knee (2016) History of hysterectomy History of tubal ligation History of ear surgery x5 left ear <Brittany Santos PA-C - Last Filed: 11/14/24 19:00> Family History Family History: Family History Father Acute myocardial infarction Heart disease Hypertension Sibling Diabetes mellitus Depression Heart disease Daughter Pancreatitis Diabetes mellitus Mother Lymphoma <Brittany Santos PA-C - Last Filed: 11/14/24 19:00> Social History Social History: Social History (Updated 11/14/24 @ 22:12 by Kailyn Soni DO) Social History: Code status: Full code Smoking packs per day: 1 Smoking cigarettes per day: 20.0 Years smoked: 10 Smoking pack-years: 10.00 Smoking status: Former smoker Tobacco type: cigarettes Smoking end date: 11/04/79 Alcohol intake: current Drinks per week: 1 Alcohol use details: Very Little Substance use: current Substance use type: does not use Lack of Transportation: No Lack of Food: Never True Current Housing: I Have Housing Concerned About Future Housing: No Difficulty Paying Gas/Electric Bills: No Difficulty Paying for Meds: No Currently Unemployed: No Education: Trade/Vocational Certificate Difficulty w/ Childcare or Family Care: No Living arrangements: [facility] Additional living arrangements comments: alone [facility] Occupation/Education: retired Gender identity (if verbalized by the patient): Female Sexual Orientation (if Verbalized by the Patient): Straight or Heterosexual Spiritual care concerns: Yes Agree to blood products: Yes <Brittany Santos PA-C - Last Filed: 11/14/24 19:00> Exam Narrative: GENERAL: Elderly but well appearing, obese with BMI of 38.7, non-toxic, in no acute distress. HEAD: Normocephalic, atraumatic. RESPIRATORY: Airway patent, respirations nonlabored. Clear to auscultation bilaterally, no rales, rhonchi, wheezing. CARDIOVASCULAR: Regular rate and rhythm without murmurs, rubs, or gallops. ABDOMINAL: Soft, mild diffuse tenderness throughout abdomen, nondistended. Slightly hyperactive BS. MUSCULOSKELETAL: Moves all extremities. No gross deformities. SKIN: Warm, dry, normal color. NEURO: A&O X3. Speech clear. Cranial nerves II-XII grossly intact. Steady gait. No ataxic movements. PSYCHIATRIC: Appropriate mood and affect. Normal interaction. <Brittany Santos PA-C - Last Filed: 11/14/24 19:00> Course SERVICE SPRINKLER HELPER/PA Physician Supervision This visit was performed by both a physician and an APC. I performed all aspects of the MDM as documented. <Agustin Banda MD - Last Filed: 11/14/24 22:23> Vital Signs Vital signs: Vital Signs Temperature 98.4 F 11/14/24 13:47 Pulse Rate 88 11/14/24 13:47 Respiratory Rate 18 11/14/24 13:47 Blood Pressure 159/68 H 11/14/24 13:47 Pulse Oximetry 98 11/14/24 13:47 Oxygen Delivery Room Air 11/14/24 13:47 Temperature 98.4 F 11/14/24 21:30 Pulse Rate 83 11/14/24 21:30 Respiratory Rate 18 11/14/24 21:30 Blood Pressure 137/59 L 11/14/24 21:30 Pulse Oximetry 97 11/14/24 21:30 Oxygen Delivery Room Air 11/14/24 13:47 <Brittany Santos PA-C - Last Filed: 11/14/24 19:00> Vital Signs Temperature 98.4 F 11/14/24 13:47 Pulse Rate 88 11/14/24 13:47 Respiratory Rate 18 11/14/24 13:47 Blood Pressure 159/68 H 11/14/24 13:47 Pulse Oximetry 98 11/14/24 13:47 Oxygen Delivery Room Air 11/14/24 13:47 Temperature 98.4 F 11/14/24 21:30 Pulse Rate 83 11/14/24 21:30 Respiratory Rate 18 11/14/24 21:30 Blood Pressure 137/59 L 11/14/24 21:30 Pulse Oximetry 97 11/14/24 21:30 Oxygen Delivery Room Air 11/14/24 13:47 <Agustin Banda MD - Last Filed: 11/14/24 22:23> MDM - Abdominal Pain MDM Narrative Medical decision making narrative: Patient presented to ED with abdominal pain, N/V/D last night. Vital signs are stable upon arrival. Patient is in no acute distress. Laboratory studies with white blood cell count of 15.5. Neutrophil predominance. No bandemia. CMP with sodium 130, likely related to dehydration. Stable kidney function. Blood glucose 116. Normal LFTs, however lipase is markedly elevated to 1525. Lactic acid WNL at 1.2. UA is clear, no signs of infection. CT scan of abdomen/pelvis was obtained and showing evidence of acute uncomplicated pancreatitis. Fluids are ongoing. Patient initially declined pain medicine, but was agreeable to receiving a small dose of morphine. No previous history of pancreatitis. Does report her daughter had history of this. No comment on abnormality of gallbladder on CT imaging. Will obtain right upper quadrant ultrasound. Triglyceride level was added on and within normal range. Patient does not regularly drink alcohol. Unclear etiology to pancreatitis. Will be admitted for further evaluation continue fluid hydration. Discussed case with Ayse FONTANEZ hospitalist, accepted patient for admission. Patient in agreement with plan. <Brittany Santos PA-C - Last Filed: 11/14/24 19:00> Medical Records Attestation: I reviewed the patient's medical records. <Brittany Santos PA-C - Last Filed: 11/14/24 19:00> Lab Data Attestation: I reviewed the patient's lab results. <Brittany Santos PA-C - Last Filed: 11/14/24 19:00> Result diagrams: 11/14/24 15:05 11/14/24 15:05 <Brittany Santos PA-C - Last Filed: 11/14/24 19:00> Labs: Lab Results 11/14/24 11/14/24 Range/Units 15:05 15:13 WBC 15.5 H (4.5-10.0) K/mm3 RBC 4.29 (4.2-5.4) M/mm3 Hgb 12.5 (12.0-15.0) g/dL Hct 37.7 (37.0-47.0) % MCV 87.9 (80-100) fl MCH 29.1 (26-34) pg MCHC 33.2 (32-36) g/dl RDW 13.1 (11.5-14.5) % Plt Count 323 (150-375) k/mm3 MPV 10.8 H (7.4-10.4) fl Immature Gran % (Auto) 0.5 (0-0.5) % Neut % (Auto) 83.6 H (45.5-73.1) % Lymph % (Auto) 9.4 L (18.3-44.2) % [place] % (Auto) 5.7 (2.6-8.5) % Eos % (Auto) 0.5 (0-4.4) % Baso % (Auto) 0.3 (0.2-1.2) % Lymph # (Auto) 1.45 (0.9-3.2) K/mm3 [place] # (Auto) 0.9 H (0.1-0.6) K/mm3 Eos # (Auto) 0.1 (0-0.3) K/mm3 Baso # (Auto) 0.1 (0.0-0.1) K/mm3 Abs Immat Gran (auto) 0.07 H (0.00-0.031) K/mm3 Absolute Neuts (auto) 13.0 H (1.3-6.7) K/mm3 Absolute Nucleated RBC 0.000 (0.0-0.012) K/mm3 Nucleated RBC % 0.0 (0.0-0.2) % Sodium 130 L (137-145) mmol/L Potassium 4.0 (3.4-5.0) mmol/L Chloride 95 L (98-107) mmol/L Carbon Dioxide 23 (22-30) mmol/L Anion Gap 12 (4-12) mmol/L BUN 22 H (7-17) mg/dL Creatinine 0.87 (0.7-1.0) mg/dL Estim Creat Clear Calc Not Reportable Estimated GFR > 60 (59 - ) Glucose 116 H (65-110) mg/dL Lactic Acid 1.2 (0.7-2.0) mmol/L Calcium 9.3 (8.4-10.2) mg/dL Total Bilirubin 0.8 (0.2-1.3) mg/dL AST 28 (14-36) U/L ALT 14 (6-35) U/L Alkaline Phosphatase 87 (38-126) U/L Troponin I < 0.012 (0.000-0.034) ng/mL Total Protein 8.4 H (6.3-8.2) g/dL Albumin 4.5 (3.5-5.1) g/dL Triglycerides 130 (<150) mg/dL Lipase 1525 H (23-300) U/L Urine Color Yellow (Yellow) Urine Appearance Clear (Clear) Urine pH 6.5 (5.0-9.0) Ur Specific [place] 1.016 (1.001-1.035) Urine Protein Negative (Negative) mg/dL Urine Glucose (UA) Negative (Negative) mg/dL Urine Ketones Negative (Negative) mg/dL Ur Blood (Man) Negative (Negative) Urine Nitrate Negative (Negative) Urine Bilirubin Negative (Negative) Urine Urobilinogen 0.2 (<2.0) mg/dL Leukocyte Esterase Rfl Negative (Negative) TEA/UL <Brittany Santos PA-C - Last Filed: 11/14/24 19:00> Lab Results 11/14/24 11/14/24 Range/Units 15:05 15:13 WBC 15.5 H (4.5-10.0) K/mm3 RBC 4.29 (4.2-5.4) M/mm3 Hgb 12.5 (12.0-15.0) g/dL Hct 37.7 (37.0-47.0) % MCV 87.9 (80-100) fl MCH 29.1 (26-34) pg MCHC 33.2 (32-36) g/dl RDW 13.1 (11.5-14.5) % Plt Count 323 (150-375) k/mm3 MPV 10.8 H (7.4-10.4) fl Immature Gran % (Auto) 0.5 (0-0.5) % Neut % (Auto) 83.6 H (45.5-73.1) % Lymph % (Auto) 9.4 L (18.3-44.2) % [place] % (Auto) 5.7 (2.6-8.5) % Eos % (Auto) 0.5 (0-4.4) % Baso % (Auto) 0.3 (0.2-1.2) % Lymph # (Auto) 1.45 (0.9-3.2) K/mm3 [place] # (Auto) 0.9 H (0.1-0.6) K/mm3 Eos # (Auto) 0.1 (0-0.3) K/mm3 Baso # (Auto) 0.1 (0.0-0.1) K/mm3 Abs Immat Gran (auto) 0.07 H (0.00-0.031) K/mm3 Absolute Neuts (auto) 13.0 H (1.3-6.7) K/mm3 Absolute Nucleated RBC 0.000 (0.0-0.012) K/mm3 Nucleated RBC % 0.0 (0.0-0.2) % Sodium 130 L (137-145) mmol/L Potassium 4.0 (3.4-5.0) mmol/L Chloride 95 L (98-107) mmol/L Carbon Dioxide 23 (22-30) mmol/L Anion Gap 12 (4-12) mmol/L BUN 22 H (7-17) mg/dL Creatinine 0.87 (0.7-1.0) mg/dL Estim Creat Clear Calc Not Reportable Estimated GFR > 60 (59 - ) Glucose 116 H (65-110) mg/dL Lactic Acid 1.2 (0.7-2.0) mmol/L Calcium 9.3 (8.4-10.2) mg/dL Total Bilirubin 0.8 (0.2-1.3) mg/dL AST 28 (14-36) U/L ALT 14 (6-35) U/L Alkaline Phosphatase 87 (38-126) U/L Troponin I < 0.012 (0.000-0.034) ng/mL Total Protein 8.4 H (6.3-8.2) g/dL Albumin 4.5 (3.5-5.1) g/dL Triglycerides 130 (<150) mg/dL Lipase 1525 H (23-300) U/L Urine Color Yellow (Yellow) Urine Appearance Clear (Clear) Urine pH 6.5 (5.0-9.0) Ur Specific [place] 1.016 (1.001-1.035) Urine Protein Negative (Negative) mg/dL Urine Glucose (UA) Negative (Negative) mg/dL Urine Ketones Negative (Negative) mg/dL Ur Blood (Man) Negative (Negative) Urine Nitrate Negative (Negative) Urine Bilirubin Negative (Negative) Urine Urobilinogen 0.2 (<2.0) mg/dL Leukocyte Esterase Rfl Negative (Negative) TEA/UL <Agustin Banda MD - Last Filed: 11/14/24 22:23> Imaging Data Attestation: I personally reviewed and interpreted this imaging study as follows: <Brittany Santos PA-C - Last Filed: 11/14/24 19:00> Radiologist's impression: ITS Impressions Abdomen/Pelvis CT 11/14/24 17:13 IMPRESSION: 1. Acute uncomplicated pancreatitis. Abdomen Ultrasound 11/14/24 19:18 IMPRESSION: 1: Increased pancreatic echotexture, consistent with known pancreatitis. <Brittany Santos PA-C - Last Filed: 11/14/24 19:00> ITS Impressions Abdomen/Pelvis CT 11/14/24 17:13 IMPRESSION: 1. Acute uncomplicated pancreatitis. Abdomen Ultrasound 11/14/24 19:18 IMPRESSION: 1: Increased pancreatic echotexture, consistent with known pancreatitis. <Agustin Banda MD - Last Filed: 11/14/24 22:23> Discharge Plan Discharge Clinical Impression: Pancreatitis Qualifiers: Chronicity: acute Pancreatitis type: idiopathic Acute pancreatitis complication: no infection or necrosis Qualified Code(s): K85.00 - Idiopathic acute pancreatitis without necrosis or infection <Brittany Santos PA-C - Last Filed: 11/14/24 19:00> Patient Disposition: Still a Patient <Brittany Santos PA-C - Last Filed: 11/14/24 19:00> Condition: Stable <Brittany Santos PA-C - Last Filed: 11/14/24 19:00>
[2024-11-14 16:26] LABS: Alanine Aminotransferase 14 U/L (6-35); Albumin Level 4.5 g/dL (3.5-5.1); Alkaline Phosphatase 87 U/L (38-126); Anion Gap 12 mmol/L (4-12); Aspartate Amino Transferase 28 U/L (14-36); Bilirubin,Total 0.8 mg/dL (0.2-1.3); Blood Urea Nitrogen 22 mg/dL (7-17); Calcium 9.3 mg/dL (8.4-10.2); Carbon Dioxide 23 mmol/L (22-30); Chloride 95 mmol/L (98-107); Estimated Glomerular Filt Rate > 60; Glucose 116 mg/dL (65-110); Lipase 1525 U/L (23-300); Potassium 4.0 mmol/L (3.4-5.0); Sodium 130 mmol/L (137-145); Total Protein 8.4 g/dL (6.3-8.2)
[2024-11-14] MEDS: ACETAMINOPHEN 500 MG TABLET 1000 MG PO (16:42)
[2024-11-14] MEDS: PANTOPRAZOLE SODIUM IV 40 MG VIAL IV PUSH (16:42)
[2024-11-14] MEDS: SODIUM CHLORIDE 0.9% IV 1,000 ML 999 ML IV CONT ×2 (16:42→18:26)
--- NOTE | 2024-11-14 17:51 | ECG_ITS ---
Test Date: 2024-11-14 18:05:04 Measurements Intervals [place] Rate: 90 P: 0 AR: 0 QRS: 34 QRSD: 88 T: 43 QT: 351 QTc: 432 Interpretive Statements NORMAL SINUS RHYTHM NONSPECIFIC ST ABNORMALITY ABNORMAL ECG Compared to ECG 12/12/2023 10:25:25 Supraventricular rhythm now present ST (T wave) deviation now present Electronically Signed On 11-15-2024 12:15:32 CDT by Justice Velasquez M.D.
[2024-11-14 18:12] LABS: Triglycerides 130 mg/dL (<150)
[2024-11-14 18:25] LABS: Troponin I < 0.012 ng/mL (0.000-0.034)
[2024-11-14] MEDS: MORPHINE SULFATE (*CRX) 2 MG/ML INJ IV PUSH (18:26)
[2024-11-14] MEDS: ONDANSETRON INJ 4 MG/2 ML VIAL IV PUSH (18:26)
--- NOTE | 2024-11-14 18:41 | PC.NURSE ---
This nurse got report from Sara in the ER. she stated pt was going to US first and will not be up to the room right away.
[2024-11-14 18:45] VITALS: BP 100/54; PULSE 88; RESP 96; TEMP 36.4; O2SAT 20
--- NOTE | 2024-11-14 18:46 | ADMGEN ---
This patient, Marleny Wolff, was admitted to [facility] Surg Room 309-01. Patient/family oriented to hospital policies and general routines including ID bracelet, bed and alarms, visiting hours, pain management, procedures, bathroom and other care routines, personal items, smoking policy, room service/diet, and visiting hours. Information on how to activate the Rapid Response Team has been discussed. Patient/Family are encouraged to report perceived risks to care and to ask questions if they do not understand what they are told or what they should do. This nurse got report from Sara in ER
[2024-11-14] MEDS: SODIUM CHLORIDE 0.9% IV 1,000 ML 125 ML IV CONT (19:02)
[2024-11-14 21:30] VITALS: BP 137/59; PULSE 66; PULSE 83; RESP 18; RESP 26; TEMP 36.9; O2SAT 93; O2SAT 97
--- NOTE | 2024-11-14 22:03 | P.HP_ITS ---
H&P: HPI History of Present Illness Date/Time: 11/14/24 22:03 Chief Complaint: Abdominal pain Narrative: 79-year-old female with a past medical history of essential hypertension, aortic stenosis, diastolic dysfunction hyperlipidemia, obstructive sleep apnea, GERD and umbilical hernia who presented to the ER with epigastric pain that started last night after eating. She stated she went to the cafeteria at [facility] with friends. She ate 1 rib and at shortly there after became acutely nauseated. But as soon as she got back to her room she had 3 episodes of nonbilious vomiting. It was shortly thereafter followed by numerous episodes of watery diarrhea. She then developed almost immediate epigastric pain just prior to vomiting. She reported the pain was severe in nature. She she denied any radiation of the pain. He has not had any fevers or chills or recent travel. She denies any recent antibiotic exposure. She denies any hematochezia or melena. Labs in the ER demonstrated an elevated lipase and CT confirmed acute pancreatitis. Patient does not drink alcohol. Right upper quadrant ultrasound was negative for gallstones and labs were not consistent with a biliary obstruction. The patient reports improved pain after receiving IV morphine and fluids. Pain is now a 4 -5/10. She reports that her pain did radiate up into her esophagus and down into her middle abdomen a couple of times after she started vomiting but this pain has since resolved. Review of Systems 2 Review of Systems: 12 systems were reviewed with pertinent positives and negatives per HPI. Except as documented in the HPI, all other systems were reviewed and are negative. [facility] Past Medical History Medical History (Updated 11/14/24 @ 22:15 by Kailyn Soni DO) Diastolic dysfunction Nonrheumatic aortic (valve) stenosis Gastro-esophageal reflux disease without esophagitis Chronic kidney disease, stage 3a Normal colonoscopy 09/22 GERD (gastroesophageal reflux disease) ANAIS (obstructive sleep apnea) Hypertension Hyperlipidemia Surgical History Surgical History (Updated 11/14/24 @ 22:11 by Kailyn Soni DO) Status post insertion of dental implant H/O abdominal surgery History of total right knee replacement (09/2024) History of partial thyroidectomy Right History of umbilical hernia repair (12/2023) 12/17/23 DaVinci assisted UHR repair with mesh Akin Roque MD History of knee replacement procedure of left knee (2016) History of hysterectomy History of tubal ligation History of ear surgery x5 left ear Family History Family History Father Acute myocardial infarction Heart disease Hypertension Sibling Diabetes mellitus Depression Heart disease Daughter Pancreatitis Diabetes mellitus Mother Lymphoma Social History Social History (Updated 11/15/24 @ 22:24 by Kailyn Soni DO) Social History: She is and lives in [facility] since 2020. She raised 3 children. She very rarely drinks alcohol and only in small amounts. She ambulates with a Rollator. Code status: Full code Smoking packs per day: 1 Smoking cigarettes per day: 20.0 Years smoked: 10 Smoking pack-years: 10.00 Smoking status: Former smoker Tobacco type: cigarettes Smoking end date: 11/04/79 Alcohol intake: current Drinks per week: 1 Alcohol use details: Very Little Substance use: current Substance use type: does not use Lack of Transportation: No Lack of Food: Never True Current Housing: I Have Housing Concerned About Future Housing: No Difficulty Paying Gas/Electric Bills: No Difficulty Paying for Meds: No Currently Unemployed: No Education: Trade/Vocational Certificate Difficulty w/ Childcare or Family Care: No Living arrangements: [facility] Additional living arrangements comments: She has been at [facility] since 2020. Occupation/Education: retired Gender identity (if verbalized by the patient): Female Sexual Orientation (if Verbalized by the Patient): Straight or Heterosexual Spiritual care concerns: Yes Agree to blood products: Yes Meds Home Medications and Allergies Home Medications ?Medication ?Instructions ?Recorded ?Confirmed ?Type atorvastatin 40 mg tablet 40 mg PO DAILY #90 tabs 03/0711/14/24 Rx lisinopril 40 mg tablet 40 mg PO DAILY #90 tabs 06/0411/14/24 Rx hydrochlorothiazide 25 mg tablet 25 mg PO DAILY #90 ta bs 07/07/24 11/14/24 Rx omeprazole 20 mg capsule,delayed 20 mg PO DAILY #90 ca ps 07/07/24 11/14/24 Rx release acetaminophen 325 mg capsule 650 mg PO Q6H PAIN 11/14/24 History Allergies Allergy/AdvReac Type Severity Reaction Status Date / Time No Known Allergies Allergy Verified 06/17/24 09:29 Vital Signs Vital Signs - 24 hr 11/14/24 13:47 11/14/24 18:45 11/14/24 21:30 Temperature 98.4 F 97.6 F 98.4 F Pulse Rate 88 88 83 Respiratory Rate 18 96 H 18 Blood Pressure 159/68 H 100/54 L 137/59 L Pulse Oximetry 98 20 L 97 Oxygen Delivery Room Air Exam 2 Narrative: Weight 87 kg BMI 38.7 Const: Other: No acute distress, obese, appears stated age HENMT: Other: Mucous membranes are tacky, no oral pharyngeal erythema, head is normocephalic atraumatic Eyes: Other: Pupils are equal and reactive, bilateral lens implants noted, no conjunctival pallor, no scleral icterus, nasal CPAP in place Neck: Other: No JVD, no lymphadenopathy, large neck circumference Resp: Other: Clear to auscultation bilaterally, no increased work of breathing Cardio: Other: Systolic murmur heard over the left upper sternal border 2/6, no JVD, 2+ bilateral radial pedal pulses, regular rate, regular rhythm GI: Other: Reproducible tenderness to the palpation and the epigastric and right upper quadrant, abdomen is otherwise obese/distended and soft, normoactive bowel sounds Skin: Other: No jaundice, no pallor Neuro: Other: Alert oriented x4, speech is clear, no facial asymmetry, no localizing neurologic deficits noted during the course of conversation Extrem: Other: No clubbing, cyanosis or edema, moves all extremities equally Psych: Other: Appropriate mood and affect, pleasant and cooperative, judgment and insight intact H&P: Results Labs Labs: Laboratory Tests 11/14/24 15:05 11/14/24 15:05 11/14/24 11/14/24 15:05 15:13 WBC 15.5 H RBC 4.29 Hgb 12.5 Hct 37.7 MCV 87.9 MCH 29.1 MCHC 33.2 RDW 13.1 Plt Count 323 MPV 10.8 H Immature Gran % (Auto) 0.5 Neut % (Auto) 83.6 H Lymph % (Auto) 9.4 L [place] % (Auto) 5.7 Eos % (Auto) 0.5 Baso % (Auto) 0.3 Lymph # (Auto) 1.45 [place] # (Auto) 0.9 H Eos # (Auto) 0.1 Baso # (Auto) 0.1 Abs Immat Gran (auto) 0.07 H Absolute Neuts (auto) 13.0 H Absolute Nucleated RBC 0.000 Nucleated RBC % 0.0 Sodium 130 L Potassium 4.0 Chloride 95 L Carbon Dioxide 23 Anion Gap 12 BUN 22 H Creatinine 0.87 Estim Creat Clear Calc Not Reportable Estimated GFR > 60 Glucose 116 H Lactic Acid 1.2 Calcium 9.3 Total Bilirubin 0.8 AST 28 ALT 14 Alkaline Phosphatase 87 Troponin I < 0.012 Total Protein 8.4 H Albumin 4.5 Triglycerides 130 Lipase 1525 H Urine Color Yellow Urine Appearance Clear Urine pH 6.5 Ur Specific [place] 1.016 Urine Protein Negative Urine Glucose (UA) Negative Urine Ketones Negative Ur Blood (Man) Negative Urine Nitrate Negative Urine Bilirubin Negative Urine Urobilinogen 0.2 Leukocyte Esterase Rfl Negative Impressions Abdomen/Pelvis CT 11/14/24 17:13 IMPRESSION: 1. Acute uncomplicated pancreatitis. Abdomen Ultrasound 11/14/24 19:18 IMPRESSION: 1: Increased pancreatic echotexture, consistent with known pancreatitis. EKG: Normal sinus rhythm rate [address] depression QTC 432 baseline artifact in V4 and lead 2. Cardiology interpretation pending Assessment and Plan Assessment and plan (1) Pancreatitis: Qualifiers: Acute pancreatitis complication: no infection or necrosis Chronicity: a cute Pancreatitis type: idiopathic Qualified Code(s): K85.00 - Idiopathic acute pancreatitis without necrosis or infection Code(s): K85.90 - Acute pancreatitis without necrosis or infection, unspecified Status: Acute (2) Obstructive sleep apnea (adult) (pediatric): Code(s): G47.33 - Obstructive sleep apnea (adult) (pediatric) Status: Acute (3) Hypertension: Qualifiers: Hypertension type: primary hypertension Qualified Code(s): I10 - Essential (primary) hypertension Code(s): I10 - Essential (primary) hypertension Status: Acute (4) Gastro-esophageal reflux disease without esophagitis: Code(s): K21.9 - Gastro-esophageal reflux disease without esophagitis Status: Acute Plan Patient presents with acute uncomplicated pancreatitis likely idiopathic in nature given no evidence of biliary sludge or ductal dilatation on CT or right upper quadrant ultrasound. Lipase only mildly elevated. Will continue IV fluid hydration and patient will be NPO except for meds with sips. Once symptoms improved will advanced diet as tolerated to low-fat diet. P.r.n. pain medications with Tylenol and morphine been ordered. Will provide Zofran as needed for nausea. Patient does have some mild leukocytosis but no obvious evidence of infection. Will repeat CBC, CMP and lipase in a.m.. Patient's blood pressures are stable will resume home lisinopril and hydrochlorothiazide. Will hold atorvastatin for the short term. Will continue Protonix daily. MEDICAL DECISION MAKING NARRATIVE -Spoke with the ED provider in detail regarding patient's evaluation, workup and management -Patient seen and examined at bedside -Collaborated with patient's nurse at the bedside in detail and addressed all concerns -Labs, electrolytes, radiology, investigations and test results personally reviewed and interpreted unless otherwise specified -ED/Consult/Nursing/Ancilliary notes on the chart reviewed and appreciated -Spoke with patient at bedside and diagnosis and plan of care was discussed. All questions answered. Quality VTE Prophylaxis VTE prophylaxis: mechanical ordered (SCDs) Hospitalist MIPS Advance Care Plan I have confirmed that the patient's Advanced Care Plan is present, code status is documented, or surrogate decision maker is listed in patient medical record.: Yes Medication Reconciliation I have utilized all available resources to obtain, update and review the patients current medications (includes all prescriptions, OTC, herbals, cannabis, and nutritional supplements).: Yes
[2024-11-15 01:34] VITALS: RESP 20
[2024-11-15] MEDS: SODIUM CHLORIDE 0.9% IV 1,000 ML 125 ML IV CONT (03:01)
[2024-11-15 05:43] LABS: Hematocrit 34.2 % (37.0-47.0); Hemoglobin 11.1 g/dL (12.0-15.0); Immature Granulocyte Percent A 0.9 % (0-0.5); Lymphocytes Absolute Auto 1.24 K/mm3 (0.9-3.2); Mean Corpuscular HGB Conc 32.5 g/dl (32-36); Mean Corpuscular Hemoglobin 29.1 pg (26-34); Mean Corpuscular Volume 89.5 fl (80-100); Nucleated Red Blood Cells Absolute Auto 0.000 K/mm3 (0.0-0.012); Nucleated Red Blood Cells Perc 0.0 % (0.0-0.2); Platelet Count Result 280 k/mm3 (150-375); Red Blood Count 3.82 M/mm3 (4.2-5.4); White Blood Count 16.6 K/mm3 (4.5-10.0)
[2024-11-15 06:00] VITALS: BP 128/54; PULSE 76; RESP 18; TEMP 36.4; O2SAT 97
[2024-11-15 06:06] LABS: Alanine Aminotransferase 13 U/L (6-35); Albumin Level 3.8 g/dL (3.5-5.1); Alkaline Phosphatase 76 U/L (38-126); Anion Gap 9 mmol/L (4-12); Aspartate Amino Transferase 36 U/L (14-36); Bilirubin,Total 0.8 mg/dL (0.2-1.3); Blood Urea Nitrogen 13 mg/dL (7-17); Calcium 8.8 mg/dL (8.4-10.2); Carbon Dioxide 26 mmol/L (22-30); Chloride 97 mmol/L (98-107); Estimated Glomerular Filt Rate > 60; Glucose 121 mg/dL (65-110); Lipase 375 U/L (23-300); Potassium 4.1 mmol/L (3.4-5.0); Sodium 132 mmol/L (137-145)
[2024-11-15 06:15] LABS: Total Protein 7.2 g/dL (6.3-8.2)
[2024-11-15] MEDS: PANTOPRAZOLE SODIUM IV 40 MG VIAL IV PUSH (09:08)
[2024-11-15 14:00] VITALS: BP 134/62; PULSE 62; RESP 16; TEMP 37.8; O2SAT 97
--- NOTE | 2024-11-15 14:24 | PM.IMPN ---
Progress Note: A&P Assessment and Plan (1) Pancreatitis: Qualifiers: Acute pancreatitis complication: no infection or necrosis Chronicity: acute Pancreatitis type: idiopathic Qualified Code(s): K85.00 - Idiopathic acute pancreatitis without necrosis or infection Code(s): K85.90 - Acute pancreatitis without necrosis or infection, unspecified Status: Acute (2) Obstructive sleep apnea (adult) (pediatric): Code(s): G47.33 - Obstructive sleep apnea (adult) (pediatric) Status: Acute (3) Hypertension: Qualifiers: Hypertension type: primary hypertension Qualified Code(s): I10 - Essential (primary) hypertension Code(s): I10 - Essential (primary) hypertension Status: Acute (4) Gastro-esophageal reflux disease without esophagitis: Code(s): K21.9 - Gastro-esophageal reflux disease without esophagitis Status: Acute Plan Patient presents with acute uncomplicated pancreatitis likely idiopathic in nature given no evidence of biliary sludge or ductal dilatation on CT or right upper quadrant ultrasound. Lipase only mildly elevated. Will continue IV fluid hydration and patient will be NPO except for meds with sips. Once symptoms improved will advanced diet as tolerated to low-fat diet. P.r.n. pain medications with Tylenol and morphine been ordered. Will provide Zofran as needed for nausea. Patient does have some mild leukocytosis but no obvious evidence of infection. Will repeat CBC, CMP and lipase in a.m.. Patient's blood pressures are stable will resume home lisinopril and hydrochlorothiazide. Will hold atorvastatin for the short term. Will continue Protonix daily. 0.9 ns rate decreased to avoid leg edema pt is encouraged ot ambulate ok to advance diet if no nausea or abd pain code status changed to full code per pt request. repeat labs: cbc, bmp, and lipase in am Time Spent With Patient Time with patient: 25 - 35 minutes Subjective Date/time seen: 11/15/24 14:24 Interval history: 79-year-old female with a past medical history of essential hypertension, aortic stenosis, diastolic dysfunction hyperlipidemia, obstructive sleep apnea, GERD and umbilical hernia who presented to the ER with epigastric pain that started last night after eating. Pt is seen and examined. She is very pleasant, reports no nausea but occasional abd pain still present. Review of Systems Review of Systems: All systems reviewed & are unremarkable except as noted in HPI and below Exam Narrative: Weight 87 kg BMI 38.7 Const: General: comfortable Neck: Thyroid: thyroid normal Resp: Effort & Inspection: normal respiratory effort Auscultation: clear to auscultation bilaterally Cardio: Rate: regular rate Rhythm: regular rhythm GI: GI Palp: Yes Tenderness to palpation present (GI) Auscultation: normal bowel sounds Skin: General skin exam: normal color Neuro: Motor exam (neuro): 5/5 motor strength present throughout Extrem: General: normal to inspection Psych: Affect: normal affect Objective Data Vital Signs Vital Signs: Vital Signs - 24 hr 11/14/24 18:45 11/14/24 20:00 11/14/24 21:30 Temperature 97.6 F 98.4 F Pulse Rate 88 83 Respiratory Rate 96 H 18 Blood Pressure 100/54 L 137/59 L Pulse Oximetry 20 L 97 Oxygen Delivery Room Air 11/14/24 21:30 11/15/24 01:34 11/15/24 06:00 Temperature 97.6 F Pulse Rate 66 76 Respiratory Rate 26 H 20 18 Blood Pressure 128/54 L Pulse Oximetry 93 97 Oxygen Delivery Autopap Autopap Intake/Output Intake/Output: Intake & Output 11/12/24 11/13/24 11/14/24 11/15/24 23:59 23:59 23:59 23:59 Intake Total 1000 1217.9 Balance 1000 1217.9 Meds/Results Medications: Active Medications Generic Name Dose Route Start Last Admin Trade Name Freq PRN Reason Stop Dose Admin Acetaminophen 650 mg 11/14/24 22:00 Acetaminophen 325 Mg Tablet PO Q6H PRN Pain 1-3 or fever Dextrose 12.5 gm 11/14/24 17:51 Dextrose 50% 25 Gm/50 Ml Syringe IV PUSH PRN PRN Hypoglycemia Protocol Glucagon 1 mg 11/14/24 17:51 Glucagon For Inj 1 Mg Vial IM PRN PRN Hypoglycemia Protocol Glucose 15 gm 11/14/24 17:51 Glucose Oral Gel 15 Gm Of Glucse In 37.5 Gm Tube PO PRN PRN Hypoglycemia Protocol Hydrochlorothiazide 25 mg 11/15/24 09:00 11/15/24 09:08 Hydrochlorothiazide 25 Mg Tablet PO 25 mg DAILY LYDIA Administration Sodium Chloride 1,000 mls @ 125 mls/hr 11/14/24 17:55 11/15/24 03:01 Normal Saline Iv IV CONT 125 mls/hr .Q8H LYDIA Administration Dextrose 1,000 mls @ 100 mls/hr 11/14/24 17:51 Dextrose 5% 1,000 Ml IVPB PRN PRN Hypoglycemia Protocol Lisinopril 40 mg 11/15/24 09:00 11/15/24 09:08 Lisinopril 20 Mg Tablet PO 40 mg DAILY LYDIA Administration Morphine Sulfate 2 mg 11/14/24 22:01 Morphine Sulfate (*Crx) 2 Mg/Ml Inj IV PUSH Q4H PRN Pain Rated 7-10 Ondansetron HCl 4 mg 11/14/24 17:51 Ondansetron Inj 4 Mg/2 Ml Vial IV PUSH Q4H PRN Nausea Pantoprazole Sodium 40 mg 11/15/24 09:00 11/15/24 09:08 Pantoprazole Sodium Iv 40 Mg Vial IV PUSH 40 mg QAM LYDIA Administration Radiology Results: ITS Impressions Abdomen/Pelvis CT 11/14/24 17:13 IMPRESSION: 1. Acute uncomplicated pancreatitis. Abdomen Ultrasound 11/14/24 19:18 IMPRESSION: 1: Increased pancreatic echotexture, consistent with known pancreatitis. Labs Labs: Laboratory Results - last 24 hr 11/14/24 11/14/24 11/15/24 15:05 15:13 05:09 WBC 15.5 H 16.6 H RBC 4.29 3.82 L Hgb 12.5 11.1 L Hct 37.7 34.2 L MCV 87.9 89.5 MCH 29.1 29.1 MCHC 33.2 32.5 RDW 13.1 13.1 Plt Count 323 280 MPV 10.8 H 11.3 H Immature Gran % (Auto) 0.5 0.9 H Neut % (Auto) 83.6 H 84.7 H Lymph % (Auto) 9.4 L 7.5 L [place] % (Auto) 5.7 6.3 Eos % (Auto) 0.5 0.4 Baso % (Auto) 0.3 0.2 Lymph # (Auto) 1.45 1.24 [place] # (Auto) 0.9 H 1.1 H Eos # (Auto) 0.1 0.1 Baso # (Auto) 0.1 0.0 Abs Immat Gran (auto) 0.07 H 0.15 H Absolute Neuts (auto) 13.0 H 14.1 H Absolute Nucleated RBC 0.000 0.000 Nucleated RBC % 0.0 0.0 Sodium 130 L 132 L Potassium 4.0 4.1 Chloride 95 L 97 L Carbon Dioxide 23 26 Anion Gap 12 9 BUN 22 H 13 D Creatinine 0.87 0.85 Estim Creat Clear Calc Not Reportable Not Reportable Estimated GFR > 60 > 60 Glucose 116 H 121 H Lactic Acid 1.2 Calcium 9.3 8.8 Total Bilirubin 0.8 0.8 AST 28 36 ALT 14 13 Alkaline Phosphatase 87 76 Troponin I < 0.012 Total Protein 8.4 H 7.2 Albumin 4.5 3.8 Triglycerides 130 Lipase 1525 H 375 H Urine Color Yellow Urine Appearance Clear Urine pH 6.5 Ur Specific [place] 1.016 Urine Protein Negative Urine Glucose (UA) Negative Urine Ketones Negative Ur Blood (Man) Negative Urine Nitrate Negative Urine Bilirubin Negative Urine Urobilinogen 0.2 Leukocyte Esterase Rfl Negative
[2024-11-15] MEDS: SODIUM CHLORIDE 0.9% IV 1,000 ML 75 ML IV CONT (16:24)
[2024-11-15 21:41] VITALS: O2SAT 95
[2024-11-15 21:58] VITALS: BP 131/59; PULSE 78; RESP 20; TEMP 37; O2SAT 95
[2024-11-15 22:22] VITALS: RESP 20
[2024-11-16] VITALS (7 sets, daily range): BP systolic 127–136; BP diastolic 61–65; PULSE 74–83; RESP 16–20; TEMP 36.2–37; O2SAT 95–99
[2024-11-16 06:08] LABS: Hematocrit 30.7 % (37.0-47.0); Hemoglobin 10.1 g/dL (12.0-15.0); Mean Corpuscular HGB Conc 32.9 g/dl (32-36); Mean Corpuscular Hemoglobin 29.4 pg (26-34); Mean Corpuscular Volume 89.2 fl (80-100); Platelet Count Result 264 k/mm3 (150-375); Red Blood Count 3.44 M/mm3 (4.2-5.4); White Blood Count 16.8 K/mm3 (4.5-10.0)
[2024-11-16 06:26] LABS: Anion Gap 8 mmol/L (4-12); Blood Urea Nitrogen 10 mg/dL (7-17); Calcium 8.7 mg/dL (8.4-10.2); Carbon Dioxide 26 mmol/L (22-30); Chloride 95 mmol/L (98-107); Estimated Glomerular Filt Rate > 60; Glucose 109 mg/dL (65-110); Lipase 56 U/L (23-300); Potassium 4.1 mmol/L (3.4-5.0); Sodium 129 mmol/L (137-145)
[2024-11-16] MEDS: ATORVASTATIN 40 MG TABLET PO (09:53)
[2024-11-16] MEDS: DOCUSATE SODIUM 100 MG CAPSULE PO (09:54)
--- NOTE | 2024-11-16 09:54 | PM.IMPN ---
Progress Note: A&P Assessment and Plan (1) Pancreatitis: Qualifiers: Acute pancreatitis complication: no infection or necrosis Chronicity: acute Pancreatitis type: idiopathic Qualified Code(s): K85.00 - Idiopathic acute pancreatitis without necrosis or infection Code(s): K85.90 - Acute pancreatitis without necrosis or infection, unspecified Status: Acute (2) Obstructive sleep apnea (adult) (pediatric): Code(s): G47.33 - Obstructive sleep apnea (adult) (pediatric) Status: Acute (3) Hypertension: Qualifiers: Hypertension type: primary hypertension Qualified Code(s): I10 - Essential (primary) hypertension Code(s): I10 - Essential (primary) hypertension Status: Acute (4) Gastro-esophageal reflux disease without esophagitis: Code(s): K21.9 - Gastro-esophageal reflux disease without esophagitis Status: Acute Plan Patient presents with acute uncomplicated pancreatitis likely idiopathic in nature given no evidence of biliary sludge or ductal dilatation on CT or right upper quadrant ultrasound. Lipase only mildly elevated. Will continue IV fluid hydration and patient will be NPO except for meds with sips. Once symptoms improved will advanced diet as tolerated to low-fat diet. P.r.n. pain medications with Tylenol and morphine been ordered. Will provide Zofran as needed for nausea. Patient does have some mild leukocytosis but no obvious evidence of infection. Will repeat CBC, CMP and lipase in a.m.. Patient's blood pressures are stable will resume home lisinopril and hydrochlorothiazide. Will hold atorvastatin for the short term. Will continue Protonix daily. 11/13 0.9 ns rate decreased to avoid leg edema pt is encouraged ot ambulate ok to advance diet if no nausea or abd pain code status changed to full code per pt request. repeat labs: cbc, bmp, and lipase in am 11/16 NOted leukocytosis slowly trending up, noted fever 100.00 on 11/15 ua was collected on 11/14- unremarkable will add blood cultures to r/o bacteremia, chest xray - will hold on with antibiotics for now and trend labs,temp curve, follow cultures results Time Spent With Patient Time with patient: Greater than 35 minutes Subjective Date/time seen: 11/16/24 09:54 Interval history: 79-year-old female with a past medical history of essential hypertension, aortic stenosis, diastolic dysfunction hyperlipidemia, obstructive sleep apnea, GERD and umbilical hernia who presented to the ER with epigastric pain that started last night after eating. Pt is seen and examined. She is very pleasant, reports no nausea but occasional abd pain still present. 11/16 pt is up in a chair- reports passing gas but no bm, wants to start bowl regimen. NO nausea or vomiting. advancing diet slowly. Review of Systems Review of Systems: 12 systems were reviewed with pertinent positives and negatives per HPI. Except as documented in the HPI, all other systems were reviewed and are negative. All systems reviewed & are unremarkable except as noted in HPI and below Exam Narrative: Weight 87 kg BMI 38.7 Const: General: comfortable Other: No acute distress, obese, appears stated age HENMT: Other: Mucous membranes are tacky, no oral pharyngeal erythema, head is normocephalic atraumatic Eyes: Other: Pupils are equal and reactive, bilateral lens implants noted, no conjunctival pallor, no scleral icterus, nasal CPAP in place Neck: Thyroid: thyroid normal Other: No JVD, no lymphadenopathy, large neck circumference Resp: Effort & Inspection: normal respiratory effort Auscultation: clear to auscultation bilaterally Other: Clear to auscultation bilaterally, no increased work of breathing Cardio: Rate: regular rate Rhythm: regular rhythm Other: Systolic murmur heard over the left upper sternal border 2/6, no JVD, 2+ bilateral radial pedal pulses, regular rate, regular rhythm GI: Auscultation: normal bowel sounds Other: Reproducible tenderness to the palpation and the epigastric and right upper quadrant, abdomen is otherwise obese/distended and soft, normoactive bowel sounds Skin: General skin exam: normal color Other: No jaundice, no pallor Neuro: Motor exam (neuro): 5/5 motor strength present throughout Other: Alert oriented x4, speech is clear, no facial asymmetry, no localizing neurologic deficits noted during the course of conversation Extrem: General: normal to inspection Other: No clubbing, cyanosis or edema, moves all extremities equally Psych: Affect: normal affect Other: Appropriate mood and affect, pleasant and cooperative, judgment and insight intact Objective Data Vital Signs Vital Signs: Vital Signs - 24 hr 11/15/24 14:00 11/15/24 21:41 11/15/24 21:58 Temperature 100.0 F H 98.6 F Pulse Rate 62 78 Respiratory Rate 16 20 Blood Pressure 134/62 131/59 L Pulse Oximetry 97 95 95 Oxygen Delivery Autopap 11/15/24 22:22 11/16/24 02:21 11/16/24 04:51 Temperature Pulse Rate Respiratory Rate 20 17 20 Blood Pressure Pulse Oximetry Oxygen Delivery Autopap Autopap Autopap 11/16/24 06:00 Temperature 97.9 F Pulse Rate 74 Respiratory Rate 18 Blood Pressure 127/65 Pulse Oximetry 95 Oxygen Delivery Intake/Output Intake/Output: Intake & Output 11/13/24 11/14/24 11/15/24 11/16/24 23:59 23:59 23:59 23:59 Intake Total 1000 2026.9 660 Balance 1000 2026.9 660 Meds/Results Medications: Active Medications Generic Name Dose Route Start Last Admin Trade Name Freq PRN Reason Stop Dose Admin Acetaminophen 650 mg 11/14/24 22:00 Acetaminophen 325 Mg Tablet PO Q6H PRN Pain 1-3 or fever Atorvastatin Calcium 40 mg 11/16/24 09:00 Atorvastatin 40 Mg Tablet PO DAILY LYDIA Dextrose 12.5 gm 11/14/24 17:51 Dextrose 50% 25 Gm/50 Ml Syringe IV PUSH PRN PRN Hypoglycemia Protocol Docusate Sodium 100 mg 11/16/24 08:17 Docusate Sodium 100 Mg Capsule PO Q12H PRN Constipation Glucagon 1 mg 11/14/24 17:51 Glucagon For Inj 1 Mg Vial IM PRN PRN Hypoglycemia Protocol Glucose 15 gm 11/14/24 17:51 Glucose Oral Gel 15 Gm Of Glucse In 37.5 Gm Tube PO PRN PRN Hypoglycemia Protocol Hydrochlorothiazide 25 mg 11/15/24 09:00 11/15/24 09:08 Hydrochlorothiazide 25 Mg Tablet PO 25 mg DAILY LYDIA Administration Dextrose 1,000 mls @ 100 mls/hr 11/14/24 17:51 Dextrose 5% 1,000 Ml IVPB PRN PRN Hypoglycemia Protocol Sodium Chloride 1,000 mls @ 75 mls/hr 11/15/24 15:40 11/15/24 16:24 Normal Saline Iv IV CONT 75 mls/hr .[id number] LYDIA Administration Lisinopril 40 mg 11/15/24 09:00 11/15/24 09:08 Lisinopril 20 Mg Tablet PO 40 mg DAILY LYDIA Administration Morphine Sulfate 2 mg 11/14/24 22:01 Morphine Sulfate (*Crx) 2 Mg/Ml Inj IV PUSH Q4H PRN Pain Rated 7-10 Ondansetron HCl 4 mg 11/14/24 17:51 Ondansetron Inj 4 Mg/2 Ml Vial IV PUSH Q4H PRN Nausea Pantoprazole Sodium 40 mg 11/15/24 09:00 11/15/24 09:08 Pantoprazole Sodium Iv 40 Mg Vial IV PUSH 40 mg QAM LYDIA Administration Polyethylene Glycol 17 gm 11/16/24 08:17 Polyethylene Glycol 3350 17 Gm Powd.Pack PO QAM PRN Constipation Radiology Results: ITS Impressions Abdomen/Pelvis CT 11/14/24 17:13 IMPRESSION: 1. Acute uncomplicated pancreatitis. Abdomen Ultrasound 11/14/24 19:18 IMPRESSION: 1: Increased pancreatic echotexture, consistent with known pancreatitis. Labs Labs: Laboratory Results - last 24 hr 11/16/24 05:14 WBC 16.8 H RBC 3.44 L Hgb 10.1 L Hct 30.7 L MCV 89.2 MCH 29.4 MCHC 32.9 RDW 13.2 Plt Count 264 MPV 11.3 H Sodium 129 L Potassium 4.1 Chloride 95 L Carbon Dioxide 26 Anion Gap 8 BUN 10 Creatinine 0.83 Estim Creat Clear Calc Not Reportable Estimated GFR > 60 Glucose 109 Calcium 8.7 Lipase 56 Quality VTE Prophylaxis VTE prophylaxis: mechanical ordered (SCDs)
[2024-11-16] MEDS: BISACODYL 10 MG SUPPOSITORY RECTAL (16:05)
[2024-11-16] MEDS: PANTOPRAZOLE SODIUM IV 40 MG VIAL IV PUSH (16:11)
[2024-11-16] MEDS: cefTRIAXone 1 GM in SODIUM CHLORIDE 0.9% IV 50 ML 100 ML IVPB (16:12)
[2024-11-16] MEDS: AZITHROMYCIN IV 500 MG in SODIUM CHLORIDE 0.9% IV 250 ML IVPB (17:11)
[2024-11-17 04:59] VITALS: BP 135/68; PULSE 80; RESP 16; TEMP 36.3; O2SAT 95
[2024-11-17] MEDS: ATORVASTATIN 40 MG TABLET PO (09:04)
[2024-11-17] MEDS: PANTOPRAZOLE SODIUM IV 40 MG VIAL IV PUSH (09:09)
[2024-11-17 10:33] LABS: Hematocrit 32.3 % (37.0-47.0); Hemoglobin 10.8 g/dL (12.0-15.0); Mean Corpuscular HGB Conc 33.4 g/dl (32-36); Mean Corpuscular Hemoglobin 29.3 pg (26-34); Mean Corpuscular Volume 87.8 fl (80-100); Platelet Count Result 295 k/mm3 (150-375); Red Blood Count 3.68 M/mm3 (4.2-5.4); White Blood Count 18.9 K/mm3 (4.5-10.0)
[2024-11-17 10:57] LABS: Anion Gap 9 mmol/L (4-12); Blood Urea Nitrogen 11 mg/dL (7-17); Calcium 8.8 mg/dL (8.4-10.2); Carbon Dioxide 28 mmol/L (22-30); Chloride 91 mmol/L (98-107); Estimated Glomerular Filt Rate > 60; Glucose 133 mg/dL (65-110); Potassium 3.5 mmol/L (3.4-5.0); Sodium 128 mmol/L (137-145)
[2024-11-17 14:35] VITALS: BP 118/73; PULSE 73; RESP 16; TEMP 36.2; O2SAT 96
--- NOTE | 2024-11-17 16:07 | PM.IMPN ---
Progress Note: A&P Assessment and Plan (1) Pancreatitis: Qualifiers: Acute pancreatitis complication: no infection or necrosis Chronicity: acute Pancreatitis type: idiopathic Qualified Code(s): K85.00 - Idiopathic acute pancreatitis without necrosis or infection Code(s): K85.90 - Acute pancreatitis without necrosis or infection, unspecified Status: Acute (2) Obstructive sleep apnea (adult) (pediatric): Code(s): G47.33 - Obstructive sleep apnea (adult) (pediatric) Status: Acute (3) Hypertension: Qualifiers: Hypertension type: primary hypertension Qualified Code(s): I10 - Essential (primary) hypertension Code(s): I10 - Essential (primary) hypertension Status: Acute (4) Gastro-esophageal reflux disease without esophagitis: Code(s): K21.9 - Gastro-esophageal reflux disease without esophagitis Status: Acute Plan Patient presents with acute uncomplicated pancreatitis likely idiopathic in nature given no evidence of biliary sludge or ductal dilatation on CT or right upper quadrant ultrasound. Lipase only mildly elevated. Will continue IV fluid hydration and patient will be NPO except for meds with sips. Once symptoms improved will advanced diet as tolerated to low-fat diet. P.r.n. pain medications with Tylenol and morphine been ordered. Will provide Zofran as needed for nausea. Patient does have some mild leukocytosis but no obvious evidence of infection. Will repeat CBC, CMP and lipase in a.m.. Patient's blood pressures are stable will resume home lisinopril and hydrochlorothiazide. Will hold atorvastatin for the short term. Will continue Protonix daily. 11/13 0.9 ns rate decreased to avoid leg edema pt is encouraged ot ambulate ok to advance diet if no nausea or abd pain code status changed to full code per pt request. repeat labs: cbc, bmp, and lipase in am 11/16 NOted leukocytosis slowly trending up, noted fever 100.00 on 11/15 ua was collected on 11/14- unremarkable will add blood cultures to r/o bacteremia, chest xray - will hold on with antibiotics for now and trend labs,temp curve, follow cultures results 11/17 staretd on antibiotics for pneumonia yesterday- will continue IS, ambulation doing well otherwise Time Spent With Patient Time with patient: 25 - 35 minutes Subjective Date/time seen: 11/17/24 16:07 Interval history: 79-year-old female with a past medical history of essential hypertension, aortic stenosis, diastolic dysfunction hyperlipidemia, obstructive sleep apnea, GERD and umbilical hernia who presented to the ER with epigastric pain that started last night after eating. Pt is seen and examined. She is very pleasant, reports no nausea but occasional abd pain still present. 11/16 pt is up in a chair- reports passing gas but no bm, wants to start bowl regimen. NO nausea or vomiting. advancing diet slowly. 11/17 chest xray showed small pneumonia-was started on antibitoics last night. pt denies chills, pain, still feels like she is constipated no nausea Review of Systems Review of Systems: 12 systems were reviewed with pertinent positives and negatives per HPI. Except as documented in the HPI, all other systems were reviewed and are negative. All systems reviewed & are unremarkable except as noted in HPI and below Exam Narrative: Weight 87 kg BMI 38.7 Const: General: comfortable Other: No acute distress, obese, appears stated age HENMT: Other: Mucous membranes are tacky, no oral pharyngeal erythema, head is normocephalic atraumatic Eyes: Other: Pupils are equal and reactive, bilateral lens implants noted, no conjunctival pallor, no scleral icterus, nasal CPAP in place Neck: Thyroid: thyroid normal Other: No JVD, no lymphadenopathy, large neck circumference Resp: Effort & Inspection: normal respiratory effort Auscultation: clear to auscultation bilaterally Other: Clear to auscultation bilaterally, no increased work of breathing Cardio: Rate: regular rate Rhythm: regular rhythm Other: Systolic murmur heard over the left upper sternal border 2/6, no JVD, 2+ bilateral radial pedal pulses, regular rate, regular rhythm GI: Auscultation: normal bowel sounds Other: Reproducible tenderness to the palpation and the epigastric and right upper quadrant, abdomen is otherwise obese/distended and soft, normoactive bowel sounds Skin: General skin exam: normal color Other: No jaundice, no pallor Neuro: Motor exam (neuro): 5/5 motor strength present throughout Other: Alert oriented x4, speech is clear, no facial asymmetry, no localizing neurologic deficits noted during the course of conversation Extrem: General: normal to inspection Other: No clubbing, cyanosis or edema, moves all extremities equally Psych: Affect: normal affect Other: Appropriate mood and affect, pleasant and cooperative, judgment and insight intact Objective Data Vital Signs Vital Signs: Vital Signs - 24 hr 11/16/24 19:55 11/16/24 20:00 11/16/24 20:15 Temperature 97.1 F L Pulse Rate 78 78 81 Respiratory Rate 16 16 18 Blood Pressure 132/61 Pulse Oximetry 96 96 97 Oxygen Delivery Autopap Autopap 11/17/24 02:07 11/17/24 02:07 11/17/24 04:59 Temperature 97.3 F L Pulse Rate 80 Respiratory Rate 16 Blood Pressure 135/68 Pulse Oximetry 95 Oxygen Delivery CPAP Autopap Intake/Output Intake/Output: Intake & Output 11/14/24 11/15/24 11/16/24 11/17/24 23:59 23:59 23:59 23:59 Intake Total 1000 2027.9 3110 1210 Balance 1000 2026.9 3110 1210 Meds/Results Medications: Active Medications Generic Name Dose Route Start Last Admin Trade Name Freq PRN Reason Stop Dose Admin Acetaminophen 650 mg 11/14/24 22:00 Acetaminophen 325 Mg Tablet PO Q6H PRN Pain 1-3 or fever Atorvastatin Calcium 40 mg 11/16/24 09:00 11/17/24 09:04 Atorvastatin 40 Mg Tablet PO 40 mg DAILY LYDIA Administration Dextrose 12.5 gm 11/14/24 17:51 Dextrose 50% 25 Gm/50 Ml Syringe IV PUSH PRN PRN Hypoglycemia Protocol Docusate Sodium 100 mg 11/16/24 08:17 11/16/24 09:54 Docusate Sodium 100 Mg Capsule PO 100 mg Q12H PRN Administration Constipation Glucagon 1 mg 11/14/24 17:51 Glucagon For Inj 1 Mg Vial IM PRN PRN Hypoglycemia Protocol Glucose 15 gm 11/14/24 17:51 Glucose Oral Gel 15 Gm Of Glucse In 37.5 Gm Tube PO PRN PRN Hypoglycemia Protocol Hydrochlorothiazide 25 mg 11/15/24 09:00 11/17/24 09:04 Hydrochlorothiazide 25 Mg Tablet PO 25 mg DAILY LYDIA Administration Dextrose 1,000 mls @ 100 mls/hr 11/14/24 17:51 Dextrose 5% 1,000 Ml IVPB PRN PRN Hypoglycemia Protocol Sodium Chloride 1,000 mls @ 75 mls/hr 11/15/24 15:40 11/15/24 16:24 Normal Saline Iv IV CONT 75 mls/hr .[id number] LYDIA Administration Ceftriaxone Sodium 1 gm/ 50 mls @ 100 mls/hr 11/16/24 15:00 11/16/24 16:42 Sodium Chloride IVPB Infused Q24H LYDIA Infusion Azithromycin 500 mg/ Sodium 250 mls @ 250 mls/hr 11/16/24 16:00 11/16/24 18:11 Chloride IVPB 11/20/24 16:59 Infused Q24H LYDIA Infusion Lisinopril 40 mg 11/15/24 09:00 11/17/24 09:04 Lisinopril 20 Mg Tablet PO 40 mg DAILY LYDIA Administration Morphine Sulfate 2 mg 11/14/24 22:01 Morphine Sulfate (*Crx) 2 Mg/Ml Inj IV PUSH Q4H PRN Pain Rated 7-10 Ondansetron HCl 4 mg 11/14/24 17:51 Ondansetron Inj 4 Mg/2 Ml Vial IV PUSH Q4H PRN Nausea Pantoprazole Sodium 40 mg 11/15/24 09:00 11/17/24 09:09 Pantoprazole Sodium Iv 40 Mg Vial IV PUSH 40 mg QAM LYDIA Administration Polyethylene Glycol 17 gm 11/16/24 08:17 11/16/24 09:54 Polyethylene Glycol 3350 17 Gm Powd.Pack PO 17 gm QAM PRN Administration Constipation Radiology Results: ITS Impressions Abdomen/Pelvis CT 11/14/24 17:13 IMPRESSION: 1. Acute uncomplicated pancreatitis. Abdomen Ultrasound 11/14/24 19:18 IMPRESSION: 1: Increased pancreatic echotexture, consistent with known pancreatitis. Chest X-Ray 11/16/24 13:23 Impression: Small left lower lobe pneumonia Labs Labs: Laboratory Results - last 24 hr 11/17/24 10:24 WBC 18.9 H RBC 3.68 L Hgb 10.8 L Hct 32.3 L MCV 87.8 MCH 29.3 MCHC 33.4 RDW 12.8 Plt Count 295 MPV 10.5 H Sodium 128 L Potassium 3.5 Chloride 91 L Carbon Dioxide 28 Anion Gap 9 BUN 11 Creatinine 0.80 Estim Creat Clear Calc Not Reportable Estimated GFR > 60 Glucose 133 H Calcium 8.8 Quality VTE Prophylaxis VTE prophylaxis: mechanical ordered (SCDs)
[2024-11-17] MEDS: cefTRIAXone 1 GM in SODIUM CHLORIDE 0.9% IV 50 ML 100 ML IVPB (16:31)
[2024-11-17] MEDS: AZITHROMYCIN IV 500 MG in SODIUM CHLORIDE 0.9% IV 250 ML IVPB (17:11)
[2024-11-17] MEDS: DOCUSATE SODIUM 100 MG CAPSULE PO (17:26)
[2024-11-17 22:00] VITALS: BP 119/53; PULSE 64; RESP 17; TEMP 37.3; O2SAT 95
[2024-11-17 23:49] VITALS: PULSE 77; RESP 20; O2SAT 96
[2024-11-18 02:00] VITALS: PULSE 76; RESP 17; O2SAT 97
[2024-11-18 05:44] LABS: Hematocrit 30.8 % (37.0-47.0); Hemoglobin 10.2 g/dL (12.0-15.0); Mean Corpuscular HGB Conc 33.1 g/dl (32-36); Mean Corpuscular Hemoglobin 28.9 pg (26-34); Mean Corpuscular Volume 87.3 fl (80-100); Platelet Count Result 282 k/mm3 (150-375); Red Blood Count 3.53 M/mm3 (4.2-5.4); White Blood Count 13.8 K/mm3 (4.5-10.0)
[2024-11-18 06:00] VITALS: BP 134/68; PULSE 62; RESP 19; TEMP 36.8; O2SAT 94
[2024-11-18 06:30] LABS: Anion Gap 9 mmol/L (4-12); Blood Urea Nitrogen 11 mg/dL (7-17); Calcium 8.7 mg/dL (8.4-10.2); Carbon Dioxide 28 mmol/L (22-30); Chloride 91 mmol/L (98-107); Estimated Glomerular Filt Rate > 60; Glucose 105 mg/dL (65-110); Potassium 3.5 mmol/L (3.4-5.0); Sodium 128 mmol/L (137-145)
[2024-11-18] MEDS: PANTOPRAZOLE SODIUM IV 40 MG VIAL IV PUSH (09:11)
[2024-11-18 09:36] VITALS: PULSE 87; RESP 14; O2SAT 92
--- NOTE | 2024-11-18 10:54 | P.DS_ITS ---
DS: Admitting Diagnosis Discharge Date 11/18 Admitting Diagnosis pancreatitis DS: Discharge Diagnosis Discharge Diagnosis (1) Pancreatitis: Qualifiers: Acute pancreatitis complication: no infection or necrosis Chronicity: acute Pancreatitis type: idiopathic Qualified Code(s): K85.00 - Idiopathic acute pancreatitis without necrosis or infection Code(s): K85.90 - Acute pancreatitis without necrosis or infection, unspecified Status: Acute (2) Obstructive sleep apnea (adult) (pediatric): Code(s): G47.33 - Obstructive sleep apnea (adult) (pediatric) Status: Acute (3) Hypertension: Qualifiers: Hypertension type: primary hypertension Qualified Code(s): I10 - Essential (primary) hypertension Code(s): I10 - Essential (primary) hypertension Status: Acute (4) Gastro-esophageal reflux disease without esophagitis: Code(s): K21.9 - Gastro-esophageal reflux disease without esophagitis Status: Acute DS: Summary Hospital Course Hospital Course: Patient presents with acute uncomplicated pancreatitis likely idiopathic in nature given no evidence of biliary sludge or ductal dilatation on CT or right upper quadrant ultrasound. Lipase only mildly elevated. Will continue IV fluid hydration and patient will be NPO except for meds with sips. Once symptoms improved will advanced diet as tolerated to low-fat diet. P.r.n. pain medications with Tylenol and morphine been ordered. Will provide Zofran as needed for nausea. Patient does have some mild leukocytosis but no obvious evidence of infection. Will repeat CBC, CMP and lipase in a.m.. Patient's blood pressures are stable will resume home lisinopril and hydrochlorothiazide. Will continue Protonix daily. 11/13 0.9 ns rate decreased to avoid leg edema pt is encouraged ot ambulate ok to advance diet if no nausea or abd pain code status changed to full code per pt request. repeat labs: cbc, bmp, and lipase in am 11/16 NOted leukocytosis slowly trending up, noted fever 100.00 on 11/15 ua was collected on 11/14- unremarkable will add blood cultures to r/o bacteremia, chest xray - will hold on with antibiotics for now and trend labs,temp curve, follow cultures results 11/17 started on antibiotics for pneumonia yesterday- will continue IS, ambulation doing well otherwise 11/18 wbc trending down pt is doing well. eating and drinking well. no nausea. on bowel regimen. We will send her home with augmenting to complete tx for Status at Discharge Functional status at discharge: independent ambulation Overall status at discharge: patient is progressing back to baseline Time Spent with Patient Time attestation: Total time spent providing and/or coordinating discharge services: Time spent: Greater than 30 minutes Exam Narrative: Weight 87 kg BMI 38.7 Very pleasant, alert, oriented Const: General: comfortable Other: No acute distress, obese, appears stated age HENMT: Other: Mucous membranes are tacky, no oral pharyngeal erythema, head is normocephalic atraumatic Eyes: Other: Pupils are equal and reactive, bilateral lens implants noted, no conjunctival pallor, no scleral icterus, nasal CPAP in place Neck: Thyroid: thyroid normal Other: No JVD, no lymphadenopathy, large neck circumference Resp: Effort & Inspection: normal respiratory effort Auscultation: clear to auscultation bilaterally Other: Clear to auscultation bilaterally, no increased work of breathing Cardio: Rate: regular rate Rhythm: regular rhythm Other: Systolic murmur heard over the left upper sternal border 2/6, no JVD, 2+ bilateral radial pedal pulses, regular rate, regular rhythm GI: Auscultation: normal bowel sounds Other: Reproducible tenderness to the palpation and the epigastric and right upper quadrant, abdomen is otherwise obese/distended and soft, normoactive bowel sounds Skin: General skin exam: normal color Other: No jaundice, no pallor Neuro: Motor exam (neuro): 5/5 motor strength present throughout Other: Alert oriented x4, speech is clear, no facial asymmetry, no localizing neurologic deficits noted during the course of conversation Extrem: General: normal to inspection Other: No clubbing, cyanosis or edema, moves all extremities equally Psych: Affect: normal affect Other: Appropriate mood and affect, pleasant and cooperative, judgment and insight intact DS: Data Data Completed and Pending Labs on day of discharge: Labs from last 24 hours 11/18/24 11/17/24 05:03 10:24 WBC 13.8 H RBC 3.53 L Hgb 10.2 L Hct 30.8 L MCV 87.3 MCH 28.9 MCHC 33.1 RDW 12.9 Plt Count 282 MPV 11.0 H Sodium 128 L 128 L Potassium 3.5 3.5 Chloride 91 L 91 L Carbon Dioxide 28 28 Anion Gap 9 9 BUN 11 11 Creatinine 0.82 0.80 Estim Creat Clear Calc Not Reportable Not Reportable Estimated GFR > 60 > 60 Glucose 105 133 H Calcium 8.7 8.8 Discharge Plan Discharge Attending physician on discharge: Pancho Melo Discharging Clinician: Maris Silver Patient Disposition: Home Activity: july shower Diet: low fat Discharge Instructions: You were admitted for pancreatitis. Chest xray showed probable pneumonia, so you were started on antibiotics. Please continue it for 3 more days- start tomorrow. Patient Instructions: Antibiotic Form Patient Language: Greenlandic Stand Alone Forms: General Discharge Information Follow-up/Referrals: Horacio Neff MD [Primary Care Provider, [facility]] - 2 Weeks Discharge Medications: New amoxicillin-pot clavulanate 875-125 mg tablet 1 tablet PO Q12H Qty: 6 0RF Continued acetaminophen 325 mg capsule 650 mg PO Q6H atorvastatin 40 mg tablet 40 mg PO DAILY Qty: 90 2RF lisinopril 40 mg tablet 40 mg PO DAILY Qty: 90 3RF hydrochlorothiazide 25 mg tablet 25 mg PO DAILY Qty: 90 3RF omeprazole 20 mg capsule,delayed release(DR/EC) 20 mg PO DAILY Qty: 90 3RF Date of admission: 11/15/24 08:15 Primary Care Provider: Horacio Neff Admitting Provider: Ying Mora Attending physician on admission: Ying Mora Condition: Stable Quality VTE Prophylaxis VTE prophylaxis: mechanical ordered (SCDs) Hospitalist MIPS Heart Failure (Exclusion) Patient has history of Heart Transplant or Left Ventricular Assistive Device?: No IF YES, STOP HERE Heart Failure (Qualifier) Patient has current or prior documentation of LVEF less than or equal to 40%, or mod/servere depressed LVSF?: No IF NO, STOP HERE
[2024-11-18] MEDS: ATORVASTATIN 40 MG TABLET PO (11:22)
[2024-11-18] MEDS: cefTRIAXone 1 GM in SODIUM CHLORIDE 0.9% IV 50 ML 100 ML IVPB (11:48)
[2024-11-18] MEDS: AZITHROMYCIN IV 500 MG in SODIUM CHLORIDE 0.9% IV 250 ML IVPB (12:22)
== END 2024-11-18 14:00 | disposition home or self-care (01) | DRG 438 ==
LOC: ANHED 14:51 → ANH3MEDSUR 18:43
PROVIDERS: Emergency Medicine; Internal Medicine; Admitting Provider General Practice; Emergency Provider Physician Assistant; PCP Family Medicine Adolescent Medicine; Visit Provider Nurse Practitioner
DX: K85.00 Idiopathic acute pancreatitis without necrosis or infection (principal); J18.9 Pneumonia, unspecified organism; I35.0 Nonrheumatic aortic (valve) stenosis; I12.9 Hypertensive chronic kidney disease with stage 1 through stage 4 chronic kidney disease, or unspecified chronic kidney disease; N18.31 Chronic kidney disease, stage 3a; K21.9 Gastro-esophageal reflux disease without esophagitis; E78.5 Hyperlipidemia, unspecified; G47.33 Obstructive sleep apnea (adult) (pediatric); Z96.653 Presence of artificial knee joint, bilateral; Z87.891 Personal history of nicotine dependence
CPT/HCPCS: 36415; 71045; 74177; 76705; 80048; 80053; 81003; 83605; 83690; 84478; 84484; 85025; 85027; 87040; 93005; 96361; 96374; 96375; 96376; 99285; A9270; G0378; J0456; J0696; J2270; J2405; J2470; J7030; J7050; Q9967